=== PATIENT | male | born 1960 | race Caucasian/White ===

== ENCOUNTER → 2019-12-14 | Outpatient (CLI) | payer OTHER ==
[~2019-12-14] MED LIST: B COMPLEX & B121 TAB PO; COZAAR100 MG PO; GLUCOPHAGE500 MG/TAB PO; LIPITOR20 MG PO; LOPRESSOR 225 MG/TAB PO; LYRICA 25MG CAP25 MG PO; MAG-OX 400400 MG/TAB PO; PRENATAL TABLET PO; PROTONIX 40MG T40 MG PO; TOUJEO300 U/ML SQ; ULTRAM 50MG TAB50 MG PO
== END ==
LOC: COL.RAD 08:54
DX: Z01.812 Encounter for preprocedural laboratory examination (principal); K76.0 Fatty (change of) liver, not elsewhere classified; I70.0 Atherosclerosis of aorta; R11.2 Nausea with vomiting, unspecified; R19.7 Diarrhea, unspecified
CPT/HCPCS: Q9967

== ENCOUNTER 2019-12-17 06:42 | Day surgery (SDC) | payer OTHER ==
[~2019-12-17] VITALS: Ht 193 cm; Wt 156.1 kg
[2019-12-17] MEDS ORDERED: LYRICA 25MG CAP25 MG PO (07:19)
[2019-12-17] MEDS ORDERED: PROTONIX 40MG T40 MG PO (07:19)
[2019-12-17] MEDS ORDERED: LIPITOR20 MG PO (07:19)
[2019-12-17] MEDS ORDERED: MAG-OX 400400 MG/TAB PO (07:20)
[2019-12-17] MEDS ORDERED: LOPRESSOR 225 MG/TAB PO (07:20)
[2019-12-17] MEDS ORDERED: COZAAR100 MG PO (07:21)
[2019-12-17] MEDS ORDERED: TOUJEO300 U/ML SQ (07:21)
[2019-12-17] MEDS ORDERED: GLUCOPHAGE500 MG/TAB PO (07:21)
[2019-12-17 07:22] VITALS: BP 139/91; PULSE 73; TEMP 98
[2019-12-17] MEDS ORDERED: ULTRAM 50MG TAB50 MG PO (07:22)
[2019-12-17] MEDS ORDERED: B COMPLEX & B121 TAB PO (07:22)
[2019-12-17] MEDS ORDERED: PRENATAL TABLET PO (07:22)
[2019-12-17 09:25] VITALS: BP 123/74; PULSE 71; TEMP 97.7
--- NOTE | 2019-12-17 09:25 | NUR ---
PT TO BAY 1 VIA CART FROM ENDO LAB, WALKED TO CHAIR, IN ROOM, REQUESTS WATER TO DRINK, CALL LIGHT IN REACH
[2019-12-17 09:40] VITALS: BP 141/78; PULSE 69
--- NOTE | 2019-12-17 09:40 | NUR ---
DR CERVANTES INTO SEE PT AND ON FINDINGS OF POLYPS AND MASS IN SIGNMOID. PT SHAKEY, WARM AND BLANKETS USED, BETTER, PT QUIET STATES " I WAS JUST GIVEN A BLOW" NO OTHER REQUESTS AT THIS TIME
[2019-12-17 09:55] VITALS: BP 156/94; PULSE 73
--- NOTE | 2019-12-17 09:55 | NUR ---
PT TAKES JUICE AND MUFFIN, NO FURTHER SHAKING AT THIS TIME.
[2019-12-17 10:10] VITALS: BP 104/80; PULSE 83
--- NOTE | 2019-12-17 10:30 | NUR ---
PT TOOL MUFFIN AND JUICE, NO C/O. REVIEWED DISCHARGE INST. WITH PT AND , ON MODERATE SEDATION, NOT DRIVING OR DRINKING ALCOHOL TODAY. ALSO FOLLOWUP WITH PRIMARY CARE PHYSICIAN, DR CERVANTES WILL CONTACTING THEM WITH NEXT STEP APPTS AND RESULTS FROM BIOPSY OF MASS IN NEXT DAY OR TWO, VERBAL UNDERSTANDING. IV D'CD INTACT, PT UP IN ROOM DRESSED. UP TO B/R, DISCHARGED AT 1040 VIA W/C TO CAR WITH
== END 2019-12-17 10:40 | disposition home or self-care (01) ==
LOC: SDCO 06:42
DX: D12.5 Benign neoplasm of sigmoid colon (principal); D12.0 Benign neoplasm of cecum; K64.8 Other hemorrhoids; K22.70 Barrett's esophagus without dysplasia; K21.0 Gastro-esophageal reflux disease with esophagitis; K29.20 Alcoholic gastritis without bleeding; F41.9 Anxiety disorder, unspecified; E11.9 Type 2 diabetes mellitus without complications; E78.00 Pure hypercholesterolemia, unspecified; I10 Essential (primary) hypertension; G47.33 Obstructive sleep apnea (adult) (pediatric); M19.90 Unspecified osteoarthritis, unspecified site; Z87.891 Personal history of nicotine dependence; Z98.52 Vasectomy status
CPT/HCPCS: J2250; J2405; J2704; J3010; J7030

== ENCOUNTER 2019-12-21 16:57 | Inpatient (IN) | payer OTHER ==
[~2019-12-21] VITALS: Ht 193 cm; Wt 156.5 kg
[2019-12-26] VITALS (11 sets, daily range): BP systolic 89–127; BP diastolic 42–80; PULSE 52–91; TEMP 97.6–98.1
[2019-12-26 09:22] LABS: BASO # 0.1 (0.0-0.2); BASO % 1.3 % (0.0-2.0); EOS # 0.1 (0.0-0.7); EOS % 2.4 % (0-4.0); GRAN # 1.9 (1.4-6.5); GRAN % 50.6 % (42.2-75.2); HEMATOCRIT 37.5 % (42.0-52.0); LYMPH # 1.3 (1.2-3.4); LYMPH % 35.6 % (20.0-51.0); MEAN CELL VOLUME 99 fl (80.0-100.0); MEAN CORPUSCULAR HEMOGLOBIN 34 pg (27.0-31.0); MEAN CORPUSCULAR HGB CONC 35 g/dl (33.0-37.0); MEAN PLATELET VOLUME 10.1 fl (7.4-10.4); MONO # 0.4 (0.1-0.6); MONO % 9.8 % (1.7-9.3); PLATELET COUNT 117 K/mm3 (130-400); REDCELL DISTRIBUTION WIDTH-CV 12.5 % (11.5-14.5)
--- NOTE | 2019-12-26 09:28 | NUR ---
PATIENT ARRIVED TO AMB CARE UNIT AMBULATING WITH STEADY GAIT. ACOMPANYING PATIENT. PATIENT STATES HE IS VERY NERVOUS ABOUT SURGERY. PT REASSURED. LUNGS ARE CTA. HEART SOUNDS S1, S2 AND REGULAR. BOWEL SOUNDS HEARD IN ALL 4 QUADRANTS. PEDAL PULSES +2. CONSENT SIGNED. IV STARTED IN LEFT HAND WITH 20GUAGE, 1 ATTEMPT. PATIENT ON CART. AT BEDSIDE.
[2019-12-26 09:43] LABS: ALBUMIN 3.5 gm/dL (3.5-5.0); CALCIUM 8.5 mg/dL (8.4-10.2); CREATININE, serum 1.06 (0.66-1.25); POTASSIUM 4.5 mmol/L (3.4-5.0); TOTAL PROTEIN 6.6 gm/dL (6.4-8.2)
[2019-12-26 09:59] LABS: INR 0.9 (0.8-3.0)
--- NOTE | 2019-12-26 18:19 | NUR ---
Patient doing well since up from OR. Alert and oriented x 3. Family at bedside. Lap sites x 5 with edges well approximated. Patient called out stating pain 8/10 to RLQ, same as before he came in for procedure. Medications given per orders. IV fluids infusing per orders to Left hand. Bran to dependent drainage with clear yellow urine. Tolerating clear liquids advanced to regular diet, passing flatus. Post op VSS. Denies further needs at this time. Will report off to night baker.
--- NOTE | 2019-12-26 20:00 | NUR ---
Pt. sitting up in bed at this time. Pt. is A&OX3, assessment complete. INT to lt. hand patent. Pt. reports that the lino catheter is cause discomfort. Dr. King notified, ok to remove this evening. Lap sites to abd. CDI. Pt. reports pain at a 4 on pain scale. Pt. reports that he would like to wait til later to take evening meds. Informed pt. to call when ready to take said meds. Pt. deneis further needs, call light within reach.
[2019-12-27 03:31] VITALS: BP 114/65; PULSE 77; TEMP 97.6
[2019-12-27 07:18] VITALS: BP 128/59; PULSE 79; TEMP 98.1
[2019-12-27] MEDS ORDERED: ULTRAM 50MG TAB50 MG PO (08:42)
[2019-12-27] MEDS ORDERED: ROXICODONE 55 MG/TAB PO (08:42)
--- NOTE | 2019-12-27 10:15 | NUR ---
Discharg orders discussed, instructed to follow up as scheduled, explained office will be calling to schedule consult/Sx , scripts for pain meds provided, IV removed, discussed incision site(s) cares, leaving wit his , he is ambualtory and I escorted them out the door
== END 2019-12-27 10:43 | disposition home or self-care (01) | DRG 395 ==
LOC: SURG 12-26 08:10 → INPTSU 12-26 08:10 → SURG 12-26 10:00
PROVIDERS: Urology; ADMIT Surgery
PROC: 0DBP8ZX Excision of Rectum, Via Natural or Artificial Opening Endoscopic, Diagnostic (ICD-10-PCS; 2019-12-26)
PROC: 0TH983Z Insertion of Infusion Device into Ureter, Via Natural or Artificial Opening Endoscopic (ICD-10-PCS; principal; 2019-12-26 10:00)
PROC: 0DBN8ZX Excision of Sigmoid Colon, Via Natural or Artificial Opening Endoscopic, Diagnostic (ICD-10-PCS; 2019-12-26 10:00)
DX: D12.7 Benign neoplasm of rectosigmoid junction (principal); K21.0 Gastro-esophageal reflux disease with esophagitis; E66.9 Obesity, unspecified; G47.30 Sleep apnea, unspecified; I10 Essential (primary) hypertension; E78.00 Pure hypercholesterolemia, unspecified; F10.10 Alcohol abuse, uncomplicated; E11.40 Type 2 diabetes mellitus with diabetic neuropathy, unspecified; Z98.52 Vasectomy status; Z68.30 Body mass index [BMI] 30.0-30.9, adult
CPT/HCPCS: A4314; A9284; J0330; J0690; J1100; J1815; J2250; J2405; J2704; J2710; J3010; J7030

== ENCOUNTER 2020-06-20 10:00 | Outpatient (RCR) | payer OTHER ==
[2020-05-23 08:20] VITALS: BP 115/66; PULSE 77; TEMP 97.5
[2020-05-25 08:09] VITALS: BP 133/70; PULSE 67; TEMP 97.3
[2020-05-26 08:12] VITALS: BP 109/76; PULSE 76; TEMP 98.1
[2020-05-26 08:33] LABS: HEMATOCRIT 33.2 % (42.0-52.0); MEAN CELL VOLUME 96 fl (80.0-100.0); MEAN CORPUSCULAR HEMOGLOBIN 32 pg (27.0-31.0); MEAN CORPUSCULAR HGB CONC 33 g/dl (33.0-37.0); MEAN PLATELET VOLUME 9.9 fl (7.4-10.4); PLATELET COUNT 184 K/mm3 (130-400); RED BLOOD COUNT 3.45 M/mm3 (4.20-5.60); REDCELL DISTRIBUTION WIDTH-CV 12.3 % (11.5-14.5)
[2020-05-26 08:41] LABS: ALBUMIN 3.8 gm/dL (3.5-5.0); BILIRUBIN,TOTAL 0.5 mg/dL (0.0-1.0); C-REACTIVE PROTEIN 4.8 mg/dL (0.0-0.9); CALCIUM 9.1 mg/dL (8.4-10.2); CREATININE, serum 0.71 (0.66-1.25); POTASSIUM 4.5 mmol/L (3.4-5.0); TOTAL PROTEIN 7.1 gm/dL (6.4-8.2)
[2020-05-27 08:15] VITALS: BP 129/77; PULSE 73; TEMP 98.4
[2020-05-28 07:15] VITALS: BP 124/73; PULSE 71; TEMP 97.9
[2020-05-29 08:23] VITALS: BP 133/71; PULSE 89; TEMP 98
--- NOTE | 2020-05-29 08:30 | NUR ---
PICC intact right upper arm with sterile dressing change done with insertion site cleansed with chloraprep x 1, chlorhexidine impreganted disk applied, skin prep, stat lock, and tegaderm applied. no signs or symptoms of IV complications noted. no concerns voiced. re-wrapped with christiano to protect catheter. to continue with cares in EU as scheduled. voiced understanding of instructions.
[2020-05-30 08:02] VITALS: BP 121/66; PULSE 76; TEMP 97.6
[2020-06-02 08:14] LABS: MEAN CELL VOLUME 95 fl (80.0-100.0); MEAN CORPUSCULAR HEMOGLOBIN 32 pg (27.0-31.0); MEAN CORPUSCULAR HGB CONC 34 g/dl (33.0-37.0); MEAN PLATELET VOLUME 9.6 fl (7.4-10.4); PLATELET COUNT 172 K/mm3 (130-400); RED BLOOD COUNT 3.44 M/mm3 (4.20-5.60); REDCELL DISTRIBUTION WIDTH-CV 12.4 % (11.5-14.5)
[2020-06-02 08:15] LABS: HEMATOCRIT 32.8 % (42.0-52.0)
[2020-06-02 08:17] VITALS: BP 138/78; PULSE 71; TEMP 98.6
[2020-06-02 08:25] LABS: ALBUMIN 3.7 gm/dL (3.5-5.0); BILIRUBIN,TOTAL 0.5 mg/dL (0.0-1.0); C-REACTIVE PROTEIN 2.2 mg/dL (0.0-0.9); CALCIUM 8.8 mg/dL (8.4-10.2); CREATININE, serum 0.62 (0.66-1.25); POTASSIUM 4.3 mmol/L (3.4-5.0); TOTAL PROTEIN 6.9 gm/dL (6.4-8.2)
[2020-06-03 07:52] VITALS: BP 130/84; PULSE 85; TEMP 98.3
[2020-06-04 08:18] VITALS: BP 130/80; PULSE 76; TEMP 97.8
[2020-06-05 08:02] VITALS: BP 119/78; PULSE 82; TEMP 98.8
--- NOTE | 2020-06-05 08:30 | NUR ---
PICC intact right upper arm. With sterile technique right upper arm PICC dressing change done with insertion site cleansed with ChloraPrep 1, chlorhexidine impregnated disc applied, skin prep, StatLock, and Tegaderm applied. No signs or symptoms of IV complications noted. No concerns voiced. Arm wrapped with Darron to protect catheter. To continue with cares in the express unit. Patient voiced understanding of instructions.
[2020-06-06 08:10] VITALS: BP 125/84; PULSE 83; TEMP 98.4
[2020-06-07 08:00] VITALS: BP 115/70; PULSE 88; TEMP 98.4
[2020-06-08 08:37] VITALS: BP 144/90; PULSE 77; TEMP 98.9
[2020-06-09 07:53] VITALS: BP 147/76; PULSE 83; TEMP 98.4
[2020-06-09 08:46] LABS: HEMATOCRIT 32.2 % (42.0-52.0); HEMOGLOBIN 10.9 g/dl (13.5-18.0); MEAN CELL VOLUME 96 fl (80.0-100.0); MEAN CORPUSCULAR HEMOGLOBIN 32 pg (27.0-31.0); MEAN CORPUSCULAR HGB CONC 34 g/dl (33.0-37.0); MEAN PLATELET VOLUME 10.2 fl (7.4-10.4); PLATELET COUNT 143 K/mm3 (130-400); RED BLOOD COUNT 3.37 M/mm3 (4.20-5.60); REDCELL DISTRIBUTION WIDTH-CV 12.7 % (11.5-14.5)
[2020-06-09 09:01] LABS: ALBUMIN 3.6 gm/dL (3.5-5.0); BILIRUBIN,TOTAL 0.5 mg/dL (0.0-1.0); C-REACTIVE PROTEIN 1.3 mg/dL (0.0-0.9); CALCIUM 8.8 mg/dL (8.4-10.2); CREATININE, serum 0.67 (0.66-1.25); POTASSIUM 4.2 mmol/L (3.4-5.0); TOTAL PROTEIN 6.7 gm/dL (6.4-8.2)
[2020-06-10 08:07] VITALS: BP 133/81; PULSE 83; TEMP 98.3
[2020-06-11 08:08] VITALS: BP 143/90; PULSE 80; TEMP 98
[2020-06-12 08:00] VITALS: BP 174/90; PULSE 84; TEMP 98.4
--- NOTE | 2020-06-12 08:00 | NUR ---
PICC intact right upper arm with sterile dressing change done with insertion site cleansed with chloraprep x 1, chlorhexhexidine impregnated disk applied, skin prep, stat lock, and tegaderm applied. no signs or symptoms of IV complications noted. no concerns voiced. re-wrapped with christiano to protect catheter. to continue with cares in EU. voiced understanding of instructions.
[2020-06-13 08:18] VITALS: BP 129/76; PULSE 81; TEMP 98
[2020-06-14 07:58] VITALS: BP 145/83; PULSE 88; TEMP 98.6
[2020-06-15 08:00] VITALS: BP 126/72; PULSE 72; TEMP 98.3
[2020-06-16 08:09] VITALS: BP 119/76; PULSE 80; TEMP 82; TEMP 98.1
[2020-06-16 08:20] LABS: HEMOGLOBIN 11.3 g/dl (13.5-18.0); MEAN CELL VOLUME 98 fl (80.0-100.0); MEAN CORPUSCULAR HEMOGLOBIN 32 pg (27.0-31.0); MEAN CORPUSCULAR HGB CONC 33 g/dl (33.0-37.0); MEAN PLATELET VOLUME 10.3 fl (7.4-10.4); PLATELET COUNT 138 K/mm3 (130-400); RED BLOOD COUNT 3.51 M/mm3 (4.20-5.60); REDCELL DISTRIBUTION WIDTH-CV 13.5 % (11.5-14.5)
[2020-06-16 08:22] LABS: HEMATOCRIT 34.3 % (42.0-52.0)
[2020-06-16 08:31] LABS: ALBUMIN 3.8 gm/dL (3.5-5.0); BILIRUBIN,TOTAL 0.6 mg/dL (0.0-1.0); C-REACTIVE PROTEIN 1.2 mg/dL (0.0-0.9); CALCIUM 8.9 mg/dL (8.4-10.2); CREATININE, serum 0.7 (0.66-1.25); POTASSIUM 4.5 mmol/L (3.4-5.0); TOTAL PROTEIN 6.9 gm/dL (6.4-8.2)
[2020-06-17 08:01] VITALS: BP 151/89; PULSE 79; TEMP 98
[2020-06-18 08:13] VITALS: BP 143/82; PULSE 81; TEMP 98
[2020-06-18 09:28] LABS: ALBUMIN 3.6 gm/dL (3.5-5.0); BILIRUBIN,TOTAL 0.5 mg/dL (0.0-1.0); CALCIUM 8.7 mg/dL (8.4-10.2); CREATININE, serum 0.67 (0.66-1.25); POTASSIUM 4.4 mmol/L (3.4-5.0); TOTAL PROTEIN 6.5 gm/dL (6.4-8.2)
[2020-06-18 17:42] LABS: URINE MICROALBUMIN 0.9 mg/dL (0.0-1.7)
[2020-06-19 08:01] VITALS: BP 144/77; PULSE 80; TEMP 97.8
--- NOTE | 2020-06-19 08:30 | NUR ---
PICC intact right upper arm. With sterile technique right upper arm PICC dressing change done with insertion site cleansed with ChloraPrep 1, chlorhexidine impregnated disc applied, skin prep, StatLock, and Tegaderm applied. No signs or symptoms of IV complications noted. No concerns voiced. Arm wrapped with Darron to protect catheter. Patient has a doctor's appointment today. Plans to return next week for PICC cares. Voiced understanding of instructions.
[~2020-06-20] VITALS: Ht 193 cm; Wt 163.3 kg
[~2020-06-20 10:00] MED LIST changes: +BENTYL 10MG10 MG/CAP PO; +GLUCOPHAGE XR500 M1 PO; +IMODIUM 2MG CAPS2 MG PO; +LYRICA 50MG CAP50 MG PO; +NATURAL MAGNES200 MG PO; +NATURE'S BLEND100 M2 PO; +PROBIOTIC FORMU1 CAP PO; +ROXICODONE 55 MG/TAB PO; +TRULICITY0.75 MG/0. SQ
[2020-06-20 10:12] VITALS: BP 177/90; PULSE 79; TEMP 97.8
== END 2020-06-20 10:13 | disposition home or self-care (01) ==
LOC: EUO 10:00
PROVIDERS: Internal Medicine; Internal Medicine Infectious Disease
DX: R79.89 Other specified abnormal findings of blood chemistry (principal)
CPT/HCPCS: J0878; J1335

== ENCOUNTER 2020-11-14 13:12 | Emergency (ER) | payer OTHER ==
[~2020-11-14] VITALS: Ht 193 cm; Wt 150.0 kg
[2020-11-14] MEDS ORDERED: PROVENTIL0.09 MG/A1 IH (14:55)
[2020-11-14] MEDS ORDERED: AMOXICILLIN 50500 MG PO (14:55)
[2020-11-14 15:05] VITALS: BP 164/72; PULSE 70; TEMP 98.2
== END 2020-11-14 15:07 | disposition home or self-care (01) ==
LOC: COL.ER 13:12
DX: J20.9 Acute bronchitis, unspecified (principal); E11.9 Type 2 diabetes mellitus without complications; Z79.4 Long term (current) use of insulin

== ENCOUNTER 2021-01-02 08:06 | Day surgery (SDC) | payer OTHER ==
[~2021-01-02] VITALS: Ht 193 cm; Wt 167.3 kg
[~2021-01-02 08:06] MED LIST changes: +AMOXICILLIN 50500 MG PO; +PROVENTIL0.09 MG/A1 IH
[2021-01-02] MEDS ORDERED: LYRICA 75MG CAP75 MG PO (09:00)
[2021-01-02 09:01] VITALS: BP 135/82; PULSE 75; TEMP 98.2
[2021-01-02] MEDS ORDERED: LIPITOR20 MG PO (09:01)
[2021-01-02] MEDS ORDERED: PROTONIX 40MG T40 MG PO (09:01)
[2021-01-02] MEDS ORDERED: COZAAR100 MG PO (09:02)
[2021-01-02] MEDS ORDERED: LOPRESSOR100 MG PO (09:02)
[2021-01-02] MEDS ORDERED: GLUCOPHAGE1000 MG PO (09:03)
[2021-01-02] MEDS ORDERED: TOUJEO300 U/ML SQ (09:04)
[2021-01-02] MEDS ORDERED: ASPIRIN 81M81 MG/TA2 PO (09:05)
[2021-01-02] MEDS ORDERED: TRULICITY1.5 MG/0.5 SQ (09:05)
[2021-01-02] MEDS ORDERED: PRENATAL TABLET PO (09:06)
[2021-01-02] MEDS ORDERED: MAG-OX 400400 MG/TAB PO (09:06)
[2021-01-02] MEDS ORDERED: VITAMIN B COMPL1 SGL PO (09:07)
[2021-01-02] MEDS ORDERED: PROBIOTIC FORMU1 CAP PO (09:08)
[2021-01-02] MEDS ORDERED: IMODIUM A-D2 MG PO (09:08)
[2021-01-02] MEDS ORDERED: BENTYL 10MG10 MG/CAP PO (09:09)
[2021-01-02] MEDS ORDERED: LASIX 20MG TABL20 MG PO (09:10)
[2021-01-02] MEDS ORDERED: K-DUR20 MEQ PO (09:12)
[2021-01-02 10:25] VITALS: BP 122/68; PULSE 75; TEMP 98
--- NOTE | 2021-01-02 10:25 | NUR ---
Patient arrives back to [facility] alert, denies pain or nausea. Patient ambulated from cart to chair with standby assist and without any complications. Patient monitor applied, vitals stable. Patient's spouse at bedside.
--- NOTE | 2021-01-02 10:30 | NUR ---
Patient given juice and muffin.
[2021-01-02 10:45] VITALS: BP 139/93; PULSE 75
--- NOTE | 2021-01-02 10:45 | NUR ---
Patient tolerated food and drink without any nausea. Vitals stable.
[2021-01-02 11:00] VITALS: BP 139/85; PULSE 73
--- NOTE | 2021-01-02 11:10 | NUR ---
Dismissal instructions gone over with patient and patient's spouse. Both verbalize understanding and all questions answered.
--- NOTE | 2021-01-02 11:15 | NUR ---
Patient dismissed to private vehicle at patient enterance via wheelchair without any complications. Patient and spouse leave thanking staff for services.
== END 2021-01-02 11:15 | disposition home or self-care (01) ==
LOC: SDCO 08:06
DX: Z12.11 Encounter for screening for malignant neoplasm of colon (principal); K22.70 Barrett's esophagus without dysplasia; K21.00 Gastro-esophageal reflux disease with esophagitis, without bleeding; D12.4 Benign neoplasm of descending colon; K29.70 Gastritis, unspecified, without bleeding; Q40.2 Other specified congenital malformations of stomach; K63.89 Other specified diseases of intestine; K64.1 Second degree hemorrhoids; U07.1 COVID-19; I10 Essential (primary) hypertension; E78.5 Hyperlipidemia, unspecified; E66.01 Morbid (severe) obesity due to excess calories; G47.33 Obstructive sleep apnea (adult) (pediatric); G62.9 Polyneuropathy, unspecified; M19.90 Unspecified osteoarthritis, unspecified site; M86.9 Osteomyelitis, unspecified; E11.42 Type 2 diabetes mellitus with diabetic polyneuropathy; Z79.4 Long term (current) use of insulin; Z98.52 Vasectomy status; Z88.8 Allergy status to other drugs, medicaments and biological substances; Z85.048 Personal history of other malignant neoplasm of rectum, rectosigmoid junction, and anus; Z90.49 Acquired absence of other specified parts of digestive tract; Z99.89 Dependence on other enabling machines and devices; Z79.899 Other long term (current) drug therapy
CPT/HCPCS: J2704; J7030

== ENCOUNTER 2021-12-20 11:26 | Emergency (ER) | payer OTHER ==
[~2021-12-20] VITALS: Ht 198.1 cm; Wt 181.8 kg
[~2021-12-20 11:26] MED LIST changes: +ASPIRIN 81M81 MG/TA2 PO; +GLUCOPHAGE1000 MG PO; +IMODIUM A-D2 MG PO; +K-DUR20 MEQ PO; +LASIX 20MG TABL20 MG PO; +LOPRESSOR100 MG PO; +LYRICA 75MG CAP75 MG PO; +TRULICITY1.5 MG/0.5 SQ; +VITAMIN B COMPL1 SGL PO
[2021-12-20 11:31] VITALS: TEMP 98.5
[2021-12-20] MEDS ORDERED: ROXICODONE 55 MG/TAB PO (12:42)
[2021-12-20] MEDS ORDERED: CEPHALEXIN500 M1 PO (12:42)
[2021-12-20 13:08] VITALS: BP 147/83; PULSE 78
== END 2021-12-20 13:08 | disposition home or self-care (01) ==
LOC: COL.ER 11:26
DX: S93.115A Dislocation of interphalangeal joint of left lesser toe(s), initial encounter (principal); Z89.412 Acquired absence of left great toe; W22.8XXA Striking against or struck by other objects, initial encounter

== ENCOUNTER 2022-02-08 15:25 | Inpatient (IN) | payer OTHER ==
[~2022-02-08] VITALS: Ht 195.6 cm; Wt 165.1 kg
[~2022-02-08 15:25] MED LIST changes: +CEPHALEXIN500 M1 PO
[2022-02-08 16:24] LABS: BASO % 0.5 % (0.0-2.0); EOS # 0.3 K/mm3 (0.0-0.7); EOS % 4.2 % (0.0-4.0); GRAN # 4.6 K/mm3 (1.4-6.5); GRAN % 68.6 % (42.2-75.2); LYMPH # 1.1 K/mm3 (1.2-3.4); LYMPH % 16.9 % (20.0-51.0); MEAN CELL VOLUME 100 fl (80.0-100.0); MEAN CORPUSCULAR HEMOGLOBIN 33 pg (27-31); MEAN CORPUSCULAR HGB CONC 33 g/dl (33.0-37.0); MEAN PLATELET VOLUME 10.4 fl (7.4-10.4); MONO # 0.6 K/mm3 (0.1-0.6); MONO % 9.2 % (1.7-9.3); PLATELET COUNT 130 K/mm3 (130-400); RED BLOOD COUNT 3.29 M/mm3 (4.20-5.60); REDCELL DISTRIBUTION WIDTH-CV 12.3 % (11.5-14.5)
[2022-02-08 16:55] LABS: ALBUMIN 3.1 gm/dL (3.4-4.8); BILIRUBIN,TOTAL 0.5 mg/dL (0.2-1.2); CREATININE, serum 9.46 mg/dL (0.72-1.25); POTASSIUM 5.5 mmol/L (3.5-4.5); TOTAL PROTEIN 6.2 gm/dL (6.2-8.1)
[2022-02-08 17:58] LABS: COLLECTION METHOD CATHETER
[2022-02-08 18:06] LABS: MUCOUS Present (NOT PRESENT); PH 5 (5-8); SQUAMOUS EPITHELIAL 0-2 /hpf (0-10); URINE APPEARANCE Hazy (CLEAR/HAZY); URINE BACTERIA Rare /hpf (NONE SEEN); URINE BILIRUBIN Negative (NEGATIVE); URINE BLOOD 2+ (NEGATIVE); URINE COLOR Yellow (YELLOW); URINE GLUCOSE Negative (NEGATIVE); URINE KETONE Negative (NEGATIVE); URINE LEUKOCYTE ESTERASE Negative (NEGATIVE); URINE NITRATE Negative (NEGATIVE); URINE PROTEIN(semi-quant) Negative (NEGATIVE); URINE RBC 20-50 /hpf (0-2); URINE UROBILINOGEN Negative (NEGATIVE)
[2022-02-08] MEDS ORDERED: HUMALOG100 U/ML SQ (20:54)
[2022-02-08] MEDS ORDERED: ZYLOPRIM 100MG100 MG PO (21:01)
[2022-02-08] MEDS ORDERED: FOLIC ACID 11 MG/TA1 PO (21:03)
[2022-02-08] MEDS ORDERED: NYAMYC100000 U/G TP (21:58)
[2022-02-08 22:17] VITALS: BP 120/69; PULSE 68; TEMP 98
--- NOTE | 2022-02-08 22:21 | NUR ---
Pt was transferred up from ED around 2029. Alert and oriented. Calm and very pleasant. Carlyn at bedside. Shift assessment performed. Med rx completed with at bedside. COVID and infectious disease screen completed. Intake assessment and admission intake completed. Administered medications to pt per orders. Started NS at 100 ml/hr per orders into LFA IV. Blood sugar was 99 when assessed on arrival to the floor. Pt stated he was hungry, so we provided him with a sanwich tray and water. Administered ordered insulin after pt finished sandwich tray. Vital signs stable. BP 120/69 and HR 68. Breath sounds are clear. HR WNL. Abdomen is distended, but soft. Pt denies abdominal pain to palpation. Denies chest pain. Minor non-pitting edema noted in the BLE. Pt is missing the big toe on the left foot. 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 Provided pt with urinal and encouraged pt to use when needed. Will continue to assess pt's urine output. Will insert lino catheter if needed per orders. 1+ radial and pedal pulses bilaterallyy. Noted an midline incision scar on abdomen. Minor bruising noted on arms. Pt wears compression stockings on legs, and states he wears them at home. Pt states is currently bed bound, states he is very weak and is unable to stand up. Says he was using a walker at home, but has not been recently because he is unable to get up. states pt has been constipated recently, last larger BM was Tuesday, but dod have a small "golf ball" sized BM this morning. Pt reports no questions at this time, will continue to monitor.
[2022-02-08 23:44] VITALS: BP 119/64; PULSE 71; TEMP 98.2
--- NOTE | 2022-02-09 03:06 | NUR ---
Inserted lino catheter on pt with a second RN at bedside . Pt did not tolerate very well. Got urine return, but not much urine has come out of catheter so far. Will continue to assess urine output.
[2022-02-09 04:35] VITALS: BP 134/70; PULSE 67; TEMP 98.2
--- NOTE | 2022-02-09 05:29 | NUR ---
Noted about 1 hr ago that pt had nourine output into lino catheter. Pt reported to us that he would not be allowing us to place another if need be. Notified the provider, who said ordered to remove the lino. Myself and a second RN went into assess the catheter again before removal. We adjusted the placement and a large amount of thick blood began to run into the tubing, but still no urine. We attempted a small amount of irrigation and no urine appeared. We removed the catheter and noted a large clot on the end of the catheter when it was removed. The pt's penis began to bleed at the tip. We applied continuous pressure and notified the provider. We held pressure for approximately 10 mins until the bleeding stopped. A large clot came out of the pt's penis when applying pressure. The provider ordered for a abdominal CT to be ordered amd to hold the heparin injection. . Pt was able to sit up on the side of the bed and void 200 into the urinal after the catheter was removed. He reports a burning pain when urinating, but stated it was more comfortable now with the catheter out. Myself and a second RN took the patient down for the CT and returned the pt to his room. No new bleeding has been noted. Will continue to reassess for any new genital bleeding. Pt remains alert and oriented this evening. Calm. Remains in NSR. Satting at 97% on room air. Has had a total of 400 ml of urine output tonight via voiding into urinal. Urine is natanael with red. Pt continues to have fluids run in through his IV. No new edema noted. Will continue to monitor pt.
[2022-02-09 06:22] LABS: BASO % 0.5 % (0.0-2.0); EOS # 0.3 K/mm3 (0.0-0.7); EOS % 5.6 % (0.0-4.0); GRAN # 3.8 K/mm3 (1.4-6.5); GRAN % 69.3 % (42.2-75.2); HEMOGLOBIN 10.5 g/dl (13.5-18.0); LYMPH # 0.8 K/mm3 (1.2-3.4); LYMPH % 15.1 % (20.0-51.0); MEAN CELL VOLUME 101 fl (80.0-100.0); MEAN CORPUSCULAR HEMOGLOBIN 34 pg (27-31); MEAN CORPUSCULAR HGB CONC 33 g/dl (33.0-37.0); MEAN PLATELET VOLUME 10.9 fl (7.4-10.4); MONO # 0.5 K/mm3 (0.1-0.6); MONO % 8.8 % (1.7-9.3); PLATELET COUNT 129 K/mm3 (130-400); RED BLOOD COUNT 3.11 M/mm3 (4.20-5.60); REDCELL DISTRIBUTION WIDTH-CV 12.5 % (11.5-14.5)
[2022-02-09 06:28] LABS: HEMATOCRIT 31.4 % (42.0-52.0)
[2022-02-09 06:49] LABS: CALCIUM 8.6 mg/dL (8.4-10.2); CREATININE, serum 8.66 mg/dL (0.72-1.25); MAGNESIUM 2.3 mg/dL (1.6-2.6); POTASSIUM 5.6 mmol/L (3.5-4.5)
--- NOTE | 2022-02-09 07:04 | NUR ---
Pt was able to have another 175 ml void this morning. No new bleeding noted in the genital area. Continuing to monitor.
[2022-02-09 08:27] VITALS: BP 134/75; PULSE 70; TEMP 98
--- NOTE | 2022-02-09 08:46 | NUR ---
Scheduled medications given. Shift assessment performed. Patient C/O generalized aches and pains, rated a 4/10, but denies the need for interventions at this time. Patient weak overall, care specialist strength weak, but equal. VSS. Patient A&O. Colace and Miralax held for loose stools. Patient denies any further pain, discomfort, SOA, or further needs at thist time. Call light in reach. Fluids running as ordered. Fall percautions in lace. Patient having red tinged urine, free from blood clots.
--- NOTE | 2022-02-09 09:40 | NUR ---
Initial visit; Patient thanked Wind Turbine Electrical Engineer for looking in on him. He states he is doing well this morning and thanked Wind Turbine Electrical Engineer for offering God's blessings.
--- NOTE | 2022-02-09 11:32 | NUR ---
magazine worker and student work student met with patient to discuss discharge plan. Patient's Carlyn ([phone]) present at bedside. 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 At this time he reports he is able to get his shirt on and thats it. He states he has a shower chair at home that he was using but since November he has been getting bed baths from his . Patient states that he has surgery a year ago for cancer and that since then his weakness has progressed. He reports that the past three weeks " it has been the worst that it's ever been and i can't even stand". Patient has to utilize a wheelchair while ambulting otherwise he falls. Patient has no home oxygen needs. PCP is Dr. Eli Valadez and he utilizes [facility] in [place] for perscriptions with no cost difficulty. Patient does not currently have a DPOA-HC but both he and Carlyn expressed interest in establishing one. Education provided along with form. I informed the patient that we can complete this prior to discharge. Spoke with the patient about PT evaluation and the recommendation of going to [facility]. Patient reports that " i can't go home how i am now". He has had home health services since November and they were good at first but now it's not enough.Education about [facility] provided and the patient is VERY interested in a more intense therapy. [facility] director contacted and referral placed. Discharge plan: [facility] referral place
[2022-02-09 11:54] VITALS: BP 129/73; PULSE 69; TEMP 98.3
[2022-02-09 12:56] LABS: PHOSPHOROUS 5.1 mg/dL (2.3-4.7)
[2022-02-09 16:27] VITALS: BP 123/69; PULSE 70; TEMP 98
--- NOTE | 2022-02-09 18:04 | NUR ---
KEVIN Elmore contacted regarding bladder scan. Patient retaining 432 ml after a void of 400 ml. This RN instructed to rescan patient's bladder again at 1999, if more than 400 will need to straight cath patient.
--- NOTE | 2022-02-09 18:48 | NUR ---
Patient has had an ok day. VSS. Patient A&O. Continues to be very weak and unable to ambulate. Patient able to sit on edge of bed and eat with assistance. Tylenol given once this shift for hip pain. Verbal order for pain mecation recieved from Dr. Stuart. Order repeated back to and entered into the computer. Patient currenlty eating supper with the assistance of his . Denies any further pain, discomfort, SOA, or further needs at this time. Call light in reach. Fall percautions in place.
--- NOTE | 2022-02-09 20:17 | NUR ---
Pt voided 500 ml into urinal at 1999 . Urine was yellow with a littl bit of a red tint. Immediately bladder scanned pt and he retained 288 ml. Notified provider. No new changes at this time. Will continue to monitor urine output.
[2022-02-09 20:18] VITALS: BP 114/58; PULSE 68; TEMP 98
--- NOTE | 2022-02-09 22:22 | NUR ---
Pt voided 475 ml. Bladder scanned immediately after and pt had 210 residual left in bladder. Will continue to monitor urine output.
--- NOTE | 2022-02-09 23:10 | NUR ---
Pt is drowsy, but oriented this evening. Has been sleeping on and off quietly since the beginning of the shift. Has been scoring at a 2-3 so far this evening. Vital signs are stable. HR has remained below 90. BP has improved this evening. Pt is currently resting quietly. Pain medication administered x1 for abdominal pain, pt reports improvement. Pt did not eat much of his dinner. Bed alarm remains on and bed is low and locked. Continuing to assess vital signs every 2 hours and assess CIWA every 2 hours. Pt reports no questions at this time, will continue to monitor.
--- NOTE | 2022-02-09 23:15 | NUR ---
Pt is alert and oriented this evening. Family was at bedside, but has since left. Pt has voided x3 this shift. Residual assessed all times and pt had less than 400 ml in bladder. Notified provider of results. States we will continue to monitor, but no further interventions at this time. Shift assessment performed. Medications administered per orders and education provided. Pt tolerated medications well. Blood sugar was 161. Vital signs are stable. Pt was able to sit up on the side of the bed to eat dinner this evening. Pt began complaining of shivering at 1130, even with multiple blankets on. Assessed pt's temperature and he was afebrile. Still alert and oriented. Administered tylenol prn, will reassess in 1 hr to see if pt has improved. No other concerns at this time, will continue to monitor pt.
[2022-02-09 23:50] VITALS: BP 130/81; PULSE 87; TEMP 100.3
--- NOTE | 2022-02-09 23:58 | NUR ---
Pt was shivering uncontrollably. Vital signs assessed. Temp is 100.3, HR was 87, oxygen 99% on room air. Prn tylenol was administered. Notified provider. No new orders changed. Will continue to monitor.
[2022-02-10] VITALS (8 sets, daily range): BP systolic 105–135; BP diastolic 58–90; PULSE 75–118; TEMP 98.7–102.5
[2022-02-10 00:34] LABS: BASO % 0.3 % (0.0-2.0); EOS # 0.2 K/mm3 (0.0-0.7); EOS % 2.8 % (0.0-4.0); GRAN # 6.9 K/mm3 (1.4-6.5); GRAN % 88.8 % (42.2-75.2); LYMPH # 0.5 K/mm3 (1.2-3.4); LYMPH % 5.8 % (20.0-51.0); MEAN CELL VOLUME 100 fl (80.0-100.0); MEAN CORPUSCULAR HEMOGLOBIN 33 pg (27-31); MEAN CORPUSCULAR HGB CONC 33 g/dl (33.0-37.0); MEAN PLATELET VOLUME 10.2 fl (7.4-10.4); MONO # 0.1 K/mm3 (0.1-0.6); MONO % 1.5 % (1.7-9.3); PLATELET COUNT 119 K/mm3 (130-400); RED BLOOD COUNT 3.31 M/mm3 (4.20-5.60); REDCELL DISTRIBUTION WIDTH-CV 12.5 % (11.5-14.5)
[2022-02-10 00:38] LABS: ALBUMIN 3.2 gm/dL (3.4-4.8); BILIRUBIN,TOTAL 0.4 mg/dL (0.2-1.2); CALCIUM 9.1 mg/dL (8.4-10.2); TOTAL PROTEIN 6.3 gm/dL (6.2-8.1)
[2022-02-10 00:40] LABS: POTASSIUM 4.9 mmol/L (3.5-4.5)
[2022-02-10 00:54] LABS: FRACTIONAL EXCRETION OF NA+ 5.96 %
--- NOTE | 2022-02-10 01:00 | NUR ---
Re-assessed pt. Shivering has improved but is still noted. Pt has now become confused. Tells me he is at home and that his dad is at bedside. Pt also became incontinent of urine. Changed pt's linens and notified provider. New orders have been placed by provider. Will start pt on IV rocephin after blood cultures. Provider also has ordered for pt to be placed on 2L o2. New labs are being drawn and a CXR is being performed. Will continue to assess pt's and follow new orders.
[2022-02-10 01:19] LABS: ARTERIAL BLD GAS O2 SATURATION 90.8 % (92-100); ARTERIAL BLD GAS TCO2 CT 20.9; ARTERIAL BLOOD GAS BASE EXCESS -3.2 (-2-2); ARTERIAL BLOOD GAS PCO2 30.1 mmHg (35-45); ARTERIAL BLOOD GAS PO2 59.5 mmHg (80-100); ARTERIAL BLOOD GAS pH 7.44 (7.35-7.45)
[2022-02-10] MEDS ORDERED: ZYRTEC 10MG10 MG PO (01:39)
--- NOTE | 2022-02-10 06:35 | NUR ---
Pt was still voiding incontinent. Provider ordered another UA sample, but was having difficulty obtaining d/t incontinence. Provider ordered an in and out cath since pt was unable to void into the urinal. Straight cath'd the pt successfully on 1 attempt. Pt tollerated well. Collected the specimen in the chart and send to the lab. Will continue to monitor.
[2022-02-10 06:44] LABS: MEAN CELL VOLUME 100 fl (80.0-100.0); MEAN CORPUSCULAR HEMOGLOBIN 34 pg (27-31); MEAN CORPUSCULAR HGB CONC 34 g/dl (33.0-37.0); MEAN PLATELET VOLUME 10.6 fl (7.4-10.4); PLATELET COUNT 122 K/mm3 (130-400); RED BLOOD COUNT 2.96 M/mm3 (4.20-5.60); REDCELL DISTRIBUTION WIDTH-CV 12.7 % (11.5-14.5)
[2022-02-10 06:47] LABS: COLLECTION METHOD CATHETER
[2022-02-10 06:48] LABS: HEMATOCRIT 29.5 % (42.0-52.0)
[2022-02-10 06:52] LABS: ALBUMIN 2.8 gm/dL (3.4-4.8); CALCIUM 8.7 mg/dL (8.4-10.2); CREATININE, serum 6.32 mg/dL (0.72-1.25); PHOSPHOROUS 3.2 mg/dL (2.3-4.7); POTASSIUM 4.7 mmol/L (3.5-4.5)
[2022-02-10 06:57] LABS: PH 5 (5-8); SQUAMOUS EPITHELIAL None Seen /hpf (0-10); URINE APPEARANCE Hazy (CLEAR/HAZY); URINE BACTERIA None Seen /hpf (NONE SEEN); URINE BILIRUBIN Negative (NEGATIVE); URINE BLOOD 3+ (NEGATIVE); URINE COLOR Yellow (YELLOW); URINE GLUCOSE Negative (NEGATIVE); URINE KETONE Negative (NEGATIVE); URINE LEUKOCYTE ESTERASE Negative (NEGATIVE); URINE NITRATE Negative (NEGATIVE); URINE PROTEIN(semi-quant) 1+ (NEGATIVE); URINE RBC >50 /hpf (0-2); URINE UROBILINOGEN Negative (NEGATIVE)
[2022-02-10 07:37] LABS: BAND 4 % (0-10); LYMPHOCYTE 17 % (20.0-51.0); NEUTROPHILS 75 % (42.0-75.2)
[2022-02-10 11:00] LABS: CALCIUM 8.5 mg/dL (8.4-10.2); CREATININE, serum 5.79 mg/dL (0.72-1.25); POTASSIUM 5.3 mmol/L (3.5-4.5)
--- NOTE | 2022-02-10 11:52 | NUR ---
Shift assessment performed. Scheduled medications given. Patient alert but disoriented. C/O 10/10 generalized pain described as electricity running through his body. Involuntary twitching noted in upper and lower extremities. Patient extremily weak. Provider notified in change of mental status and pain. One time dose of morphine ordered and administered. CT of head ordered and completed. Results pending. MRI to be completed as well. VSS. at the bedside. Call light in reach. Fall percautions in place.
--- NOTE | 2022-02-10 18:00 | NUR ---
Patient had a rough day. Patient has been alert, but unoriented. Unvoluntary twitching continues. PRN medication given for pain control. Patient's temp theodora to 102.5 this afternoon. Tylenol given as ordered. Ice packs place under patient's arms and in the groin. Upon recheck patient's temperature was at 100.5. Blood cultures came back postive. KEVIN Alejo notified. Patient is currenlty resting in bed. Respirations are even and unlabored. VSS. at the bedside.
[2022-02-11] VITALS (9 sets, daily range): BP systolic 121–152; BP diastolic 67–87; PULSE 66–76; TEMP 97.6–99.2
--- NOTE | 2022-02-11 02:40 | NUR ---
AT 2240 LAST NIGHT THIS NURSE WAS UNABLE TO AROUSE PATIENT. DR. MORENO NOTIFIED. DR. MORENO ABLE TO AROUSE PATIENT WITH A DEEP STERNAL RUB. PATIENT ALERT AND ORIENTED TO SELF AND DATE BUT CONFUSED ABOUT WHAT IS GOING ON AND WHY HE IS IN THE HOSPITAL AND WANTS TO GO HOME. EDUCATED PATIENT HE IS ON IV ANTIBIOTICS AND OXYGEN TO KEEP HIM STABLE. PATIENT VERBALIZED UNDERSTANDING AFTER IN DEPTH EXPLANATION.
--- NOTE | 2022-02-11 05:08 | NUR ---
PATIENT HAD TWO EPISODES OF VOMITING LAST NIGHT. THE EMESIS COLOR WAS LIGHT GREEN AND IT WAS FLUID. PATIENT HAS BEEN ALERT X'S 2-[address] MORENO WAS ABLE TO AROUSE HIM. NO OTHER ISSUES NOTED OR REPORTED BY PATIENT.
--- NOTE | 2022-02-11 07:55 | NUR ---
PATIENT UNCOMFORTABLE, CONFUSED TO SITUATION, SHORT TERM MEMORY LOSS. REPOSITIONED IN BED AND TURNED TO RIGHT SIDE.
[2022-02-11 08:13] LABS: BASO % 0.6 % (0.0-2.0); EOS % 0.3 % (0.0-4.0); GRAN # 2.5 K/mm3 (1.4-6.5); GRAN % 79.1 % (42.2-75.2); LYMPH # 0.3 K/mm3 (1.2-3.4); LYMPH % 10.2 % (20.0-51.0); MEAN CELL VOLUME 99 fl (80.0-100.0); MEAN CORPUSCULAR HGB CONC 34 g/dl (33.0-37.0); MEAN PLATELET VOLUME 9.8 fl (7.4-10.4); MONO # 0.3 K/mm3 (0.1-0.6); MONO % 9.2 % (1.7-9.3); PLATELET COUNT 83 K/mm3 (130-400); RED BLOOD COUNT 2.93 M/mm3 (4.20-5.60); REDCELL DISTRIBUTION WIDTH-CV 12.6 % (11.5-14.5)
[2022-02-11 08:18] LABS: HEMATOCRIT 29.1 % (42.0-52.0); HEMOGLOBIN 9.9 g/dl (13.5-18.0); MEAN CORPUSCULAR HEMOGLOBIN 34 pg (27-31)
[2022-02-11 08:27] LABS: ALBUMIN 2.7 gm/dL (3.4-4.8); CALCIUM 8.5 mg/dL (8.4-10.2); CREATININE, serum 3.76 mg/dL (0.72-1.25); PHOSPHOROUS 3.9 mg/dL (2.3-4.7); POTASSIUM 4.8 mmol/L (3.5-4.5)
--- NOTE | 2022-02-11 09:59 | NUR ---
CONSENT OBTAINED FROM PT FOR LP, VANCOMYCIN INFUSING
--- NOTE | 2022-02-11 10:27 | NUR ---
TYLENOL GIVEN FOR PAIN MANAGEMENT, DID NOT GIVE NORCO FOR AMS, ADDRESSED WITH DR. MEYERS, HE IS COMFORTABLE WITH GIVING PAIN MEDS.
--- NOTE | 2022-02-11 12:15 | NUR ---
PT VOMITING, SUSPECTED NORCO VOMITED UP, CANNOT GIVE MORE NORCO DUE TO EXCEEDING ACETAMINOPHEN LIMIT. PEDRO BROWN MADE AWARE, ZOFRAN ORDERED, ROXICODONE ORDERED, BOTH GIVEN. PT TAKEN TO LP
--- NOTE | 2022-02-11 13:35 | NUR ---
PT RETURNED FROM LP, FLAT TIME OF 1 HOUR FOLLOWED. ATTACHED TO POST OP VITALS, FRANCESCA FOR PAIN GIVEN.
[2022-02-11 13:51] LABS: CSF APPEARANCE CLEAR; CSF COLOR COLORLESS; CSF RBC 27 /mm3 (0-0)
[2022-02-11 14:08] LABS: GLUCOSE,CSF 114 mg/dL (40-70); TOTAL PROTEIN,CSF 93 mg/dL (15-45)
[2022-02-11 14:14] LABS: CSF MONONUCLEAR 100 % (70-100); CSF POLYMORPHONUCLEAR 0 % (0-6)
--- NOTE | 2022-02-11 14:50 | NUR ---
PT ESCORTED OUT VIA WHEELCHAIR. EDUCATED PT AND PT AND DAUGHTER ON DISCHARGE PAPERWORK, IV REMOVED, TELE REMOVED.
--- NOTE | 2022-02-11 15:24 | NUR ---
PT STILL REPORTING INC PAIN, NO RELIEF FROM X2 RAMIRO. PEDRO BROWN NOTIFIED AND MORPHINE ORDERED.
--- NOTE | 2022-02-11 18:04 | NUR ---
PT C/O PAIN IN BLE AND DESCRIBES SHOOTING PAIN, PT PLEASANT, AOX4, AT BEDSIDE, PT HAS BEEN OFF AND ON BED MENDIETA BUT NO BM TODAY, MIRALAX GIVEN AND PT PASSING GAS.
--- NOTE | 2022-02-11 19:48 | NUR ---
Pt nauseated, tx refused at this time. Pt requested I not wake him if he is sleeping at 0200 tx time. RN aware.
--- NOTE | 2022-02-11 21:00 | NUR ---
Patient is in bed, with nausea and vomiting. Pain in his feet. PRNs provided. Alert and oriented x 4, VSS, Telemetry in place, NSR. Patient needs help to move himself in the bed. Right now with 2L O2 NC. Assessment completed. No other needs at this time. Call light within reach.
[2022-02-12 04:01] VITALS: BP 133/78; PULSE 62; TEMP 97.8
--- NOTE | 2022-02-12 05:32 | NUR ---
Pt had nausea and vomiting in the beginning of the shift. Zofran provided. Some time was given to provide his night medciations, including for pain in his feet. He received his IV meds. No further pain or nausea medication required. VS ROSIE. Report will be given to day RN.
[2022-02-12 07:29] VITALS: BP 139/81; PULSE 60; TEMP 97.5
[2022-02-12 09:09] LABS: BASO % 0.6 % (0.0-2.0); EOS # 0.1 K/mm3 (0.0-0.7); EOS % 4.1 % (0.0-4.0); GRAN # 1.8 K/mm3 (1.4-6.5); GRAN % 57.7 % (42.2-75.2); LYMPH # 0.7 K/mm3 (1.2-3.4); LYMPH % 21.7 % (20.0-51.0); MEAN CELL VOLUME 101 fl (80.0-100.0); MEAN CORPUSCULAR HEMOGLOBIN 33 pg (27-31); MEAN CORPUSCULAR HGB CONC 33 g/dl (33.0-37.0); MEAN PLATELET VOLUME 10.3 fl (7.4-10.4); MONO # 0.5 K/mm3 (0.1-0.6); MONO % 15.6 % (1.7-9.3); PLATELET COUNT 79 K/mm3 (130-400); REDCELL DISTRIBUTION WIDTH-CV 12.6 % (11.5-14.5)
[2022-02-12 09:10] LABS: HEMATOCRIT 30.3 % (42.0-52.0)
[2022-02-12 09:28] LABS: ALBUMIN 2.8 gm/dL (3.4-4.8); CALCIUM 8.8 mg/dL (8.4-10.2); CREATININE, serum 2.34 mg/dL (0.72-1.25); PHOSPHOROUS 3.6 mg/dL (2.3-4.7); POTASSIUM 4.8 mmol/L (3.5-4.5)
--- NOTE | 2022-02-12 09:43 | NUR ---
Pt assessment complete. Pt is laying in bed upon entry, using the bedpan at the time. Pt is A/O x4. His breathing is even and unlabored on RA. Pt denies any pain at this time. Reports he is feeling much better. No N/V, reports having good stools, refuses stool softners this am. Mildred BLANCAS. No needs at this time. Call light within reach.
[2022-02-12 11:14] VITALS: BP 141/73; PULSE 57; TEMP 98
--- NOTE | 2022-02-12 13:04 | NUR ---
The patient is to start IVIG, per neurology. [facility] is following the patient.
[2022-02-12 15:32] VITALS: BP 126/65; PULSE 66; TEMP 98.5
--- NOTE | 2022-02-12 18:44 | NUR ---
Pt remained A/O x4 today. Reports intermittent pain to L foot, relieved by PRN pain medications. Eating and drinking without issues. Able to sit on the side of the bed with minimal assistance. Yina BLANCAS. No needs at this time.
[2022-02-12 19:59] VITALS: BP 135/65; PULSE 60; TEMP 98.4
--- NOTE | 2022-02-12 21:00 | NUR ---
Patient is aler and oriented x 4, at the bedside. More talkative. VSS. He is happy because today he was able to stand up with PT. Assessment completed, medications provided. Continues complaining of pain in his feet, PRN provided. Telemetry in place, NSR. No other needs at this time. Call light within reach.
[2022-02-12 23:30] VITALS: BP 117/58; PULSE 112; TEMP 98
[2022-02-13] VITALS (7 sets, daily range): BP systolic 119–161; BP diastolic 65–83; PULSE 56–82; TEMP 97.9–98.5
[2022-02-13 06:12] LABS: BASO % 0.5 % (0.0-2.0); EOS # 0.3 K/mm3 (0.0-0.7); EOS % 6.8 % (0.0-4.0); GRAN # 2.1 K/mm3 (1.4-6.5); GRAN % 52.7 % (42.2-75.2); LYMPH % 25.1 % (20.0-51.0); MEAN CELL VOLUME 101 fl (80.0-100.0); MEAN CORPUSCULAR HGB CONC 33 g/dl (33.0-37.0); MEAN PLATELET VOLUME 10.7 fl (7.4-10.4); MONO # 0.6 K/mm3 (0.1-0.6); MONO % 14.1 % (1.7-9.3); PLATELET COUNT 78 K/mm3 (130-400); RED BLOOD COUNT 2.89 M/mm3 (4.20-5.60); REDCELL DISTRIBUTION WIDTH-CV 12.5 % (11.5-14.5)
[2022-02-13 06:15] LABS: HEMATOCRIT 29.1 % (42.0-52.0); HEMOGLOBIN 9.5 g/dl (13.5-18.0); MEAN CORPUSCULAR HEMOGLOBIN 33 pg (27-31)
[2022-02-13 06:24] LABS: ALBUMIN 2.5 gm/dL (3.4-4.8); CALCIUM 8.5 mg/dL (8.4-10.2); CREATININE, serum 1.74 mg/dL (0.72-1.25); PHOSPHOROUS 3.7 mg/dL (2.3-4.7); POTASSIUM 4.6 mmol/L (3.5-4.5)
--- NOTE | 2022-02-13 06:31 | NUR ---
Patient has had a calm night. He contines with pain in his feet. Getting antibiotics. VSS. Report will be given to day RN.
--- NOTE | 2022-02-13 09:23 | NUR ---
Scheduled medications given. Shift assessment performed. VSS. Patient A&O. Physical therapy working with patient upon entry to the room. Patient states,"I dont really have any pain." bringing in breakfast for patient. Bran catheter in place, securment device in place, no kinks in tubing. Patient denies any pain, discomfort, SOA, or further needs at this time. Call light in reach. Fall percuations in place.
--- NOTE | 2022-02-13 17:52 | NUR ---
Patient has had an ok day. Pain medication given PRN. Hot pack placed on left hip. Patient currently resting in bed comfortably. Denies any pain, discomfort, SOA, or further needs at this time. States that he is not hungry this evening and that he doesn't want supper. Call light in reach. Fall precautions in place. VSS. Patient A&O.
--- NOTE | 2022-02-13 21:00 | NUR ---
Patient is in bed, alert and oriented x 4, states he would like to continue with his pain medications since they alow him to sleep. Telemetry in place, NSR. RA. Nannette lino with yellow clear output. Assessment completed, meds provided. No further needs at this time. Call light within reach.
--- NOTE | 2022-02-14 00:36 | NUR ---
Pt refused tx at this time and stated that he does not want the tx at 0200 either and to please NOT wake him.
[2022-02-14 03:59] VITALS: BP 149/97; PULSE 71; TEMP 97.7
--- NOTE | 2022-02-14 05:47 | NUR ---
Patient has had a calm night. VSS. Antibiotics provided. All needs met. Report will be given to day RN.
[2022-02-14 06:23] LABS: BASO % 0.7 % (0.0-2.0); EOS # 0.2 K/mm3 (0.0-0.7); EOS % 4.8 % (0.0-4.0); GRAN # 2.7 K/mm3 (1.4-6.5); GRAN % 61.3 % (42.2-75.2); LYMPH # 0.9 K/mm3 (1.2-3.4); LYMPH % 19.6 % (20.0-51.0); MEAN CELL VOLUME 100 fl (80.0-100.0); MEAN CORPUSCULAR HGB CONC 33 g/dl (33.0-37.0); MEAN PLATELET VOLUME 10.7 fl (7.4-10.4); MONO # 0.6 K/mm3 (0.1-0.6); MONO % 12.9 % (1.7-9.3); PLATELET COUNT 82 K/mm3 (130-400); RED BLOOD COUNT 2.91 M/mm3 (4.20-5.60); REDCELL DISTRIBUTION WIDTH-CV 12.3 % (11.5-14.5)
[2022-02-14 06:40] LABS: ALBUMIN 2.6 gm/dL (3.4-4.8); CALCIUM 8.5 mg/dL (8.4-10.2); CREATININE, serum 1.5 mg/dL (0.72-1.25); PHOSPHOROUS 3.3 mg/dL (2.3-4.7); POTASSIUM 4.5 mmol/L (3.5-4.5)
[2022-02-14 06:48] LABS: HEMATOCRIT 29.2 % (42.0-52.0); HEMOGLOBIN 9.6 g/dl (13.5-18.0); MEAN CORPUSCULAR HEMOGLOBIN 33 pg (27-31)
[2022-02-14 07:20] VITALS: BP 159/74; PULSE 63; TEMP 98.1
--- NOTE | 2022-02-14 10:42 | NUR ---
Scheduled medications given. Shift assessment performed. Patient denies any pain at this time. States that he is having discomfort at his lino catheter site. Orders to take lino catheter out recieved from Jain. Yina guadarrama. 8 ml of fluid taken out of balloon, balloon intact, jan care completed. Patietn is having N/V. Small amount of emesis noted, consited of green mucous. Patient offered zofran, which was refused. Patient denies any further pain, discomfort, SOA, or further needs at this time. Call light in reach. Fall percautions in place.
[2022-02-14 11:37] VITALS: BP 114/67; PULSE 73; TEMP 98.1
[2022-02-14 16:48] VITALS: BP 135/66; PULSE 71; TEMP 98.7
--- NOTE | 2022-02-14 19:12 | NUR ---
Patient has had an ok day. VSS. Patient A&O. Pain medications given PRN. Patient currently denies any pain, discomfort, SOA, or further needs at this time. Call light in reach. Fall percaution in place.
[2022-02-14 20:09] VITALS: BP 127/78; PULSE 88; TEMP 98.3
[2022-02-15] VITALS (7 sets, daily range): BP systolic 104–158; BP diastolic 57–77; PULSE 56–69; TEMP 97.4–98.3
--- NOTE | 2022-02-15 01:29 | NUR ---
Pt alert and oriented this evening. Calm and cooperative. Reported pain x2 this evening. Prn pain medications administered per orders. Pt reports relief. Pt reported feeling warm earlier. Temp assessed and pt was afebrile. Turned air down in room and put fan on pt and he reported relief. Pt had x2 voids so far this evening and a small BM. No bleeding noted from genital area. Vital signs stable. Pt has improved in strength, able to turn independently in bed and can sit on side of bed with minimal assistance. Vital signs stable. FSBS 171 this evening. Shift assessment performed. Medications administered per orders and education provided. Pt tolerated PO medications well. Pt reports no questions, will continue to monitor.
--- NOTE | 2022-02-15 05:06 | NUR ---
Pt had an uneventful night. Alert and oriented when awake, resting currently. Pt has not reported any more pain overnight. Prn roxicodone and prn tylenol only administered x1 overnight for pain. Vital signs stable. Pt is on room air. Had multiple voids overnight. 2 of the voids were unmeasured, because the pt was unable to utilize the urinal. Pt also had 2 soft small BM's overnight. Medications administered per orders and tolerated well. Pt reports no questions. No concerns at this time, will continue to monitor.
[2022-02-15 07:16] LABS: BASO % 0.7 % (0.0-2.0); EOS # 0.3 K/mm3 (0.0-0.7); EOS % 4.2 % (0.0-4.0); GRAN # 4.2 K/mm3 (1.4-6.5); GRAN % 68.6 % (42.2-75.2); LYMPH % 15.5 % (20.0-51.0); MEAN CELL VOLUME 98 fl (80.0-100.0); MEAN CORPUSCULAR HGB CONC 34 g/dl (33.0-37.0); MEAN PLATELET VOLUME 10.5 fl (7.4-10.4); MONO # 0.6 K/mm3 (0.1-0.6); MONO % 10.3 % (1.7-9.3); PLATELET COUNT 94 K/mm3 (130-400); RED BLOOD COUNT 2.71 M/mm3 (4.20-5.60); REDCELL DISTRIBUTION WIDTH-CV 12.5 % (11.5-14.5)
[2022-02-15 07:20] LABS: ALBUMIN 2.5 gm/dL (3.4-4.8); CALCIUM 8.7 mg/dL (8.4-10.2); CREATININE, serum 1.26 mg/dL (0.72-1.25); PHOSPHOROUS 3.8 mg/dL (2.3-4.7); POTASSIUM 4.3 mmol/L (3.5-4.5)
[2022-02-15 07:25] LABS: HEMATOCRIT 26.5 % (42.0-52.0); MEAN CORPUSCULAR HEMOGLOBIN 33 pg (27-31)
--- NOTE | 2022-02-15 10:57 | NUR ---
PATIENT IN GOOD SPIRITS, WANTING TO HAVE TELE DC'D. COMPLAINTS OF HEADACHE. TYLENOL PROVIDED. AWAITING BREAKFAST. INQUIRING ABOUT MOVING DOWN TO IPR SOON. MOVES IN BED WELL, TURNS INDEPENDENTLY, SAT UP WITH PULL BAR ON OWN. GENERAL OPERATOR STRENGTH DIMINISHED. LANGUAGE MIDLY GROUGH, BUT NOT INTENTIONALLY OFFENSIVE.
[2022-02-15 12:00] LABS: HSV 2 DNA PCR QUAL Not Detected (())
[2022-02-15 13:44] LABS: CSF OLIG BD INTERPRETATION 1 bands (<2); SE OLIGOCLONAL BANDING 0 bands (())
--- NOTE | 2022-02-15 14:30 | NUR ---
IPR still following patient and IPR Director, Cara to meet with patient today. Discharge date unknown at this time.
--- NOTE | 2022-02-15 19:08 | NUR ---
PATIENT C/O 8-9(10) PAIN. HEADACHE. NON-RESPONSIVE TO ROXYCODONE OR TYLENOL. PAIN ON URINATIO THIS AFTERNOON WITH LOW OUTPUT, PATIENT AWKNOWLEDGED DECREASED ORAL FLUID INTAKE. 75ML/HR OF NS STARTED, FIORCET ORDERED FOR HEADACHE FROM DR. RASCON GIVEN AT BEDSIDE REPORT. PATIENT NOTED IV FLUIDS CORRESPONDING WITH DECREASING PAIN. IF INCREASED IN MORING RECOMMENDS BLOOD PATCH FROM ANESTHESIA OVER LP SITE.
--- NOTE | 2022-02-15 23:04 | NUR ---
Pt was removed from his client service coordinator around 1100 on 02/15 by day shift, but no orders to d/c the client service coordinator were put in. Notified the provider this evening, who was comfortable with the pt staying off telemetry. I put in an order to d/c the telemetry box.
--- NOTE | 2022-02-16 00:14 | NUR ---
Pt alert and oriented this evening. Resting in bed currently awake. Continues to complain of back pain and foot pain. States he has pain where the lumbar puncture was performed. The site does not appear red or swollen. Pt also complained of headahce at the beginning of the shift, but reports that it went away after the fioracet was administered. Pt has had multiple voids so far this evening. Urine does not appear to have any blood in it. Was reported that the pt complained of burning while he voided during day shift. Has not complained of that tonight. No bleeding noted in the genital area. Shift assessment performed. Medications administered per orders and education provided. Vital signs are stable. Afebrile. Blood sugar was 255 this evening. Pt has been turning well in the bed this evening with minimal assistance. Pt reports no questions. Will continue to monitor.
--- NOTE | 2022-02-16 04:55 | NUR ---
No significant changes overnight. Pt is alert and oriented when awake, is currently sleeping. Pt has not complained of acute pain this morning. Prn roxicodone was administered x2 overnight and prn tylenol x1 for back and foot pain. Pt has not complained of burning while voiding. Urine is currently a brighter orange color, d/t the AZO medication. Pt had adequate urine output overnight. No bleeding from the genital area noted. Lumbar puncture site on back appears dry/no redness/no edema. Vital signs remain stable. IV fluids continue running, as well as antibiotoics as ordered. Pt reports no questions, will continue to monitor.
[2022-02-16 06:02] LABS: BASO # 0.1 K/mm3 (0.0-0.2); BASO % 0.7 % (0.0-2.0); EOS # 0.3 K/mm3 (0.0-0.7); EOS % 4.9 % (0.0-4.0); GRAN # 4.3 K/mm3 (1.4-6.5); GRAN % 64.8 % (42.2-75.2); LYMPH # 1.3 K/mm3 (1.2-3.4); LYMPH % 18.7 % (20.0-51.0); MEAN CELL VOLUME 99 fl (80.0-100.0); MEAN CORPUSCULAR HEMOGLOBIN 33 pg (27-31); MEAN CORPUSCULAR HGB CONC 33 g/dl (33.0-37.0); MEAN PLATELET VOLUME 10.5 fl (7.4-10.4); MONO # 0.7 K/mm3 (0.1-0.6); MONO % 9.7 % (1.7-9.3); PLATELET COUNT 128 K/mm3 (130-400); RED BLOOD COUNT 3.02 M/mm3 (4.20-5.60); REDCELL DISTRIBUTION WIDTH-CV 12.6 % (11.5-14.5)
[2022-02-16 06:24] LABS: ALBUMIN 2.6 gm/dL (3.4-4.8); CALCIUM 8.5 mg/dL (8.4-10.2); CREATININE, serum 1.2 mg/dL (0.72-1.25); PHOSPHOROUS 3.4 mg/dL (2.3-4.7); POTASSIUM 4.2 mmol/L (3.5-4.5)
[2022-02-16 07:26] VITALS: BP 136/74; PULSE 57; TEMP 97.6
--- NOTE | 2022-02-16 10:33 | NUR ---
MRI UNABLE TO PERFORM ORDERED TEST, PARAM AGREEING WITH DECISION. DR. ROSA NOTIFIED AND STATED HE DID NOT FEEL TRANSFER TO [facility] WAS NECESSARY FOR MRI AND THAT HE WOULD DISCUSS ALTERNATIVE OPTIONS WITH PT LATER AFTER CLINIC. ATTEMPTED TO RELAY TO HOSPITALIST TEAM, TALISHA BROWN DID NOT ANSWER AT THIS TIME, WILL ATTEMPT AGAIN LATER.
--- NOTE | 2022-02-16 11:08 | NUR ---
PATIENT A&O, ASSISTED TO SIDE OF BED, DANGLE. NO COMPLAINTS OF PAIN AT THIS TIME. AWAITING MRI OF PELVIS. NO CONCERNS AT THIS TIME. AWAITING DISCHARGE PLANNING TO IPR, IVIG THERAPY START OR SURGICAL INTERVENTIONS FOR PERIANAL ABCESS WITH FISTUAL VS. CYST.
[2022-02-16 11:14] VITALS: BP 157/76; PULSE 52; TEMP 98
[2022-02-16 11:49] LABS: SE OLIGOCLONAL BANDING 0
[2022-02-16 15:30] VITALS: BP 140/81; PULSE 67; TEMP 98.2
--- NOTE | 2022-02-16 17:41 | NUR ---
PATIENT SITTING ON EDGE OF BED FOR MOST OF THE DAY TODAY. C/O SIGNIFICANT HEADACHE AGAIN TODAY. FLUIDS CONTINUED. FIORECT GIVEN, PATIENT DID NOT REQUEST ANY ADDITIONAL PAIN RELIEF MEDICATIONS. MRI CANCELLED DUE PATIENT SIZE. EXPLORATORY WITH POSSIBLE EXCISION OR I&D TOMORROW WITH DR. ROSA ON VICKY-RECTAL AREA. PATIENT TOOK NAP IN LATER AFTERNOON. NO SIGNIFICANT EVENTS, PLESANT BUT IN LOW SPIRITS.
[2022-02-16 20:00] VITALS: BP 125/71; PULSE 66; TEMP 97.4
[2022-02-17] VITALS (18 sets, daily range): BP systolic 97–171; BP diastolic 45–101; PULSE 49–66; TEMP 97.1–98.2
[2022-02-17 05:16] LABS: BASO # 0.1 K/mm3 (0.0-0.2); BASO % 0.7 % (0.0-2.0); EOS # 0.4 K/mm3 (0.0-0.7); EOS % 5.5 % (0.0-4.0); GRAN # 4.4 K/mm3 (1.4-6.5); GRAN % 66.1 % (42.2-75.2); LYMPH # 1.3 K/mm3 (1.2-3.4); LYMPH % 18.9 % (20.0-51.0); MEAN CELL VOLUME 103 fl (80.0-100.0); MEAN CORPUSCULAR HGB CONC 32 g/dl (33.0-37.0); MEAN PLATELET VOLUME 10.2 fl (7.4-10.4); MONO # 0.5 K/mm3 (0.1-0.6); MONO % 7.6 % (1.7-9.3); PLATELET COUNT 141 K/mm3 (130-400); RED BLOOD COUNT 2.82 M/mm3 (4.20-5.60); REDCELL DISTRIBUTION WIDTH-CV 12.7 % (11.5-14.5)
[2022-02-17 05:25] LABS: HEMATOCRIT 29.1 % (42.0-52.0); HEMOGLOBIN 9.3 g/dl (13.5-18.0); MEAN CORPUSCULAR HEMOGLOBIN 33 pg (27-31)
[2022-02-17 05:37] LABS: ALBUMIN 2.6 gm/dL (3.4-4.8); CALCIUM 8.4 mg/dL (8.4-10.2); CREATININE, serum 1.15 mg/dL (0.72-1.25); PHOSPHOROUS 3.3 mg/dL (2.3-4.7); POTASSIUM 4.5 mmol/L (3.5-4.5)
--- NOTE | 2022-02-17 08:15 | NUR ---
ASSESSMENT PERFORMED, FLUIDS HUNG FOR PROCEDURE, PT ARRIVING WHEN YOUTH CARE PROFESSIONAL ARRIVED TO TAKE PT DOWN FOR SURGERY, PT LEAVING FLOOR SHORTLY AFTER
--- NOTE | 2022-02-17 10:35 | NUR ---
PT AGITATED, KEEPS STATING "COME ON, WERE GOING HOME, I CANT FEEL MY LEGS". DRAIN IN PLACE, PT MOVING DURING VITAL SIGNS, ATTACHED PT ANX AND FLUIDS, PT REPORTS SENSATION MID THIGH
--- NOTE | 2022-02-17 13:15 | NUR ---
EDUCATED PT ON SIDE EFFECTS OF IVIG, MEDICATIONS STARTED USING PRINT OUT. PT C/O TESTICULAR DISCOMFORT, LITTLE DRAINAGE VISUALIZED FROM DRAIN, ATTACHED TO VITALS TO MONITOR IVIG
--- NOTE | 2022-02-17 13:47 | NUR ---
ASSESSING PT BP WITH IVIG, PT HYPOTENSIVE, PHARMACY NOTIFIED AND PA NOTIFIED, ORDERED TO HOLD 30MIN AND REASSESS BP. IVIG ON HOLD, WILL REASSESS BP, PT DENIES S/S OF HYPOTENSION. PT AND PT FAMILY UPDATED ON PLAN
--- NOTE | 2022-02-17 14:30 | NUR ---
BP RETURNED TO NORMAL. IVIG RESTARTED.
--- NOTE | 2022-02-17 15:00 | NUR ---
PT REPORTING NEED TO HAVE BM, BEDPAN PLACED, LITTLE DRAINAGE ON 4X4. 4X[address] REM[address] PL[address] NEW AFTER BM
--- NOTE | 2022-02-17 16:01 | NUR ---
DINNER ORDER PLACED FOR PT, CONTINUING TO MONITOR PT VITAL SIGNS. NO HYPOTENSION NOTED.
--- NOTE | 2022-02-17 19:02 | NUR ---
PT ACCIDENTALLY PULLED OUT IV DURING IVIG INFUSION. NEW BOTTLE HUNG, 20G IV STARTED TO LH AND WRAPPED WITH MADELEINE WRAP.
--- NOTE | 2022-02-17 19:21 | NUR ---
Pt refusing tx at this time and also requested to NOT be woke up at 0200 tx time.
[2022-02-18] VITALS (13 sets, daily range): BP systolic 103–173; BP diastolic 58–77; PULSE 51–89; TEMP 97.3–98.1
--- NOTE | 2022-02-18 01:14 | NUR ---
Pt alert and oriented this evening, resting currently. Reported pain at the beginning of the evening in the jan-anal area. Pt reports the area being "sore" and feeling "raw". Drain site had some drainage/stool on the 4x4 gauze. Changed the dressing. Administered prn pain medication, pt reported relief, but that bottom was still sore. Pt sat up to void without assistance and reports that he hit his toe on the bedside table, which began to bleed. I covered the cut with a gauze dressing after holding pressure and the bleeding stopped. Shift assessment performed. Medications administered per orders and education provided. Pt continued on the IVIG this evening, received 3 more doses and tolerated well. Pt continues on antibx. Pt becomes dyspneic and has expiratory wheezing on exertion, but once he is resting his RR is in WNL with no wheezing. Pt has good output this evening, urine is an orange color d/t the AZO. Pt did not report any burning with urination. Pt is able to independently move himself around in the bed and able to sit up on the side of the bed with minimal assistance. Pt does report any questions. Will continue to monitor.
[2022-02-18 06:29] LABS: MEAN CELL VOLUME 99 fl (80.0-100.0); MEAN CORPUSCULAR HGB CONC 33 g/dl (33.0-37.0); MEAN PLATELET VOLUME 10.3 fl (7.4-10.4); PLATELET COUNT 163 K/mm3 (130-400); RED BLOOD COUNT 2.77 M/mm3 (4.20-5.60); REDCELL DISTRIBUTION WIDTH-CV 12.5 % (11.5-14.5)
--- NOTE | 2022-02-18 06:30 | NUR ---
No adverse events overnight. Pt had multiple voids, no BM overnight. Changed dressing on perianal drain x2. Site remains clean and dry. Prn pain medication administered x2 for "bottom" pain, pt reported relief. Vital signs stable. Pt alert and oriented, sitting up on side of bed currently. IV antibx continue. Pt tolerated morning medications well. Pt reports no questions, will continue to monitor.
[2022-02-18 06:39] LABS: HEMATOCRIT 27.3 % (42.0-52.0); MEAN CORPUSCULAR HEMOGLOBIN 32 pg (27-31)
[2022-02-18 06:41] LABS: ALBUMIN 2.5 gm/dL (3.4-4.8); CALCIUM 8.4 mg/dL (8.4-10.2); CREATININE, serum 1.16 mg/dL (0.72-1.25); PHOSPHOROUS 2.6 mg/dL (2.3-4.7); POTASSIUM 4.3 mmol/L (3.5-4.5)
[2022-02-18 07:11] LABS: LYMPHOCYTE 31 % (20.0-51.0); NEUTROPHILS 65 % (42.0-75.2)
[2022-02-18 07:12] LABS: HYPOCHROMIA 1+; SCHISTOCYTES 1+
--- NOTE | 2022-02-18 08:15 | NUR ---
Shift assessment complete. Pt resting in bed. A&Ox4 but conversation confused at times. 3+ swelling to BLE. Lungs diminished to auscultation. Vitals stable. Denies pain, SOA, or other concerns. Rectal drain in place, no drainage on gauze at this time. Continuing to monitor.
--- NOTE | 2022-02-18 09:50 | NUR ---
IVIG INFUSION STARTED AT THIS TIME. VITALS STABLE. BP 136/63, HR 66, TEMP 97.6, RR 14, O2 98%.
[2022-02-18] MEDS ORDERED: AMOXICILLIN 50500 MG PO (10:15)
[2022-02-18] MEDS ORDERED: FLOMAX 0.40.4 MG/CAP PO (10:17)
[2022-02-18] MEDS ORDERED: NICODERM C21 MG/PATC TD (10:18)
[2022-02-18] MEDS ORDERED: NICORETTE GUM2 MG BC (10:18)
[2022-02-18] MEDS ORDERED: MIRALAX PA17 GM/Dose PO (10:20)
[2022-02-18] MEDS ORDERED: TYLENOL 325MG325 MG PO (10:23)
[2022-02-18] MEDS ORDERED: ROXICODONE 55 MG/TAB PO (10:23)
--- NOTE | 2022-02-18 11:35 | NUR ---
Patient still being followed by IPR director. IPR director is still working on getting a authorization from the patients insurance. Patient is completing second round of IVIG today. PA updated with the above.
--- NOTE | 2022-02-18 13:39 | NUR ---
IPR director notified this SW that insurance has been approved and she will have a bed available for the patient tomorrow.
--- NOTE | 2022-02-18 18:44 | NUR ---
Pt received IVIG infusion today and tolerated well. Only complaints today were of generalized body aches, relieved by jef. Supposed to go to IPR tomorrow.
--- NOTE | 2022-02-18 22:10 | NUR ---
Patient assessed around 2100. Alert and oriented x 4 at this time. Peripheral INT to left hand, with IV ABX per orders. Reports level 7 pain to right foot. Given PRN Roxicodone as requested for pain. Denies SOB and dyspnea. LS CTA in upper lobes, diminished in lower. HRR. Telemetry in place. BSAx4. Abdomen soft and non-tender. Edema BLE. Patient voices no questions, needs, or concerns at this time. In bed with call light within reach.
[2022-02-19 03:59] VITALS: BP 169/78; PULSE 80; TEMP 97.9
--- NOTE | 2022-02-19 05:25 | NUR ---
Patient has recieved PRN Roxicodone twice this shift as requested for pain to right foot. Denies SOB and dyspnea. Has been using urinal. Voices no questions, needs, or concerns at this time. In bed with call light within reach.
[2022-02-19 06:25] LABS: MEAN CELL VOLUME 101 fl (80.0-100.0); MEAN CORPUSCULAR HGB CONC 33 g/dl (33.0-37.0); MEAN PLATELET VOLUME 10.1 fl (7.4-10.4); PLATELET COUNT 163 K/mm3 (130-400); RED BLOOD COUNT 2.84 M/mm3 (4.20-5.60); REDCELL DISTRIBUTION WIDTH-CV 12.9 % (11.5-14.5)
[2022-02-19 06:38] LABS: HEMATOCRIT 28.6 % (42.0-52.0); HEMOGLOBIN 9.4 g/dl (13.5-18.0); MEAN CORPUSCULAR HEMOGLOBIN 33 pg (27-31)
[2022-02-19 06:45] LABS: ALBUMIN 2.6 gm/dL (3.4-4.8); CALCIUM 8.5 mg/dL (8.4-10.2); CREATININE, serum 1.22 mg/dL (0.72-1.25); PHOSPHOROUS 2.8 mg/dL (2.3-4.7); POTASSIUM 4.1 mmol/L (3.5-4.5)
[2022-02-19 07:27] VITALS: BP 154/78; PULSE 87; TEMP 98.6
[2022-02-19 07:39] LABS: BAND 4 % (0-10); LYMPHOCYTE 28 % (20.0-51.0); MYELOCYTE 1 % (0-0); NEUTROPHILS 62 % (42.0-75.2)
[2022-02-19 07:40] LABS: PLATELET ESTIMATE NORMAL (NORMAL)
--- NOTE | 2022-02-19 09:03 | NUR ---
Pt assessment complete. Pt is sitting up on the side of the bed upon entry, he is A/O X4. His breathing is even and unlabored on RA. Pt denies SOB. Reports chronic pain to L foot, denies need for intervention at this time. 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 Drain to rectum dependent. POC discussed with patient who verbalizes understanding. Call light within reach.
--- NOTE | 2022-02-19 13:10 | NUR ---
Pt transferred down to [facility] at this time.
== END 2022-02-19 13:10 | DRG 871 ==
LOC: COL.ER 15:25 → MEDICAL 19:01
PROVIDERS: Internal Medicine Nephrology; Personal Emergency Response Attendant; Psychiatry & Neurology Neurology; Registered Nurse; Student in an Organized Health Care Education/Training Program; Surgery; ADMIT Internal Medicine
PROC: 009U3ZX Drainage of Spinal Canal, Percutaneous Approach, Diagnostic (ICD-10-PCS; 2022-02-11)
PROC: 4A1BXSH Monitoring of Gastrointestinal Vascular Perfusion using Indocyanine Green Dye, External Approach (ICD-10-PCS; principal; 2022-02-17 08:30)
DX: A41.9 Sepsis, unspecified organism (principal); G93.41 Metabolic encephalopathy; J96.01 Acute respiratory failure with hypoxia; G61.81 Chronic inflammatory demyelinating polyneuritis; N39.0 Urinary tract infection, site not specified; N17.9 Acute kidney failure, unspecified; K61.0 Anal abscess; K60.3 Anal fistula; B96.89 Other specified bacterial agents as the cause of diseases classified elsewhere; E11.42 Type 2 diabetes mellitus with diabetic polyneuropathy; I10 Essential (primary) hypertension; K21.9 Gastro-esophageal reflux disease without esophagitis; E87.5 Hyperkalemia; B95.2 Enterococcus as the cause of diseases classified elsewhere; M21.372 Foot drop, left foot; M21.371 Foot drop, right foot; D69.6 Thrombocytopenia, unspecified; R33.9 Retention of urine, unspecified; R31.9 Hematuria, unspecified; E66.01 Morbid (severe) obesity due to excess calories; E78.5 Hyperlipidemia, unspecified; K59.00 Constipation, unspecified; R53.81 Other malaise; Z79.4 Long term (current) use of insulin; Z79.82 Long term (current) use of aspirin; Z79.891 Long term (current) use of opiate analgesic; Z85.038 Personal history of other malignant neoplasm of large intestine; Z86.16 Personal history of COVID-19; Z89.412 Acquired absence of left great toe
CPT/HCPCS: 99223-AI; 99232-AI; 99233-AI; 99239; J0330; J0690; J0696; J1200; J1569; J1644; J1815; J2270; J2405; J2543; J2704; J2920; J3010; J3370; J7030; J7040; J7050

== ENCOUNTER 2022-02-19 10:30 | Inpatient (IN) | payer OTHER ==
[~2022-02-19] VITALS: Ht 195.6 cm; Wt 169.6 kg
[~2022-02-19 10:30] MED LIST changes: +FLOMAX 0.40.4 MG/CAP PO; +FOLIC ACID 11 MG/TA1 PO; +HUMALOG100 U/ML SQ; +MIRALAX PA17 GM/Dose PO; +NICODERM C21 MG/PATC TD; +NICORETTE GUM2 MG BC; +NYAMYC100000 U/G TP; +TYLENOL 325MG325 MG PO; +ZYLOPRIM 100MG100 MG PO; +ZYRTEC 10MG10 MG PO
--- NOTE | 2022-02-19 13:00 | NUR ---
Pt to room 339 from 309. Oriented pt to his room and the IPR routine. Pt is very short and does not appear happy. Pt demanding that his bed be closer to the bathroom so that he can get in there. Discussed with pt that he was not able to walk to the bathroom in his other room due to weakness and that it would take time for him to get his strength back. Pt was very impatient and hollered, well then how am i supposed to brigitte and fred. Discussed that he would continue to go to the bathroom using a urinal and bed mcallister the same as he did on medical. Or use the sit to stand lift to get in to the bathroom. Pt then wanted his belongings all put next to his bed so that he had them when he needed them to get dressed etc. Informed him that he would continue to have a nurse and staff with him at all times to help get what items he needs. Alo in to work with pt
--- NOTE | 2022-02-19 17:30 | NUR ---
Pt much more calm now as compared to when he transferred over. Pt did void using the urinal and there was some blood present. Was not able to tell where the blood came from. Output did not appear to have any blood in it, but no cut seen either. Pt was concerned about getting the clean sheets dirty. Pt was very polite at this time. No output noted from drain. Assisted pt with getting clean underwear on. Pt does not want any dinner for tonight. Held the schedule insulin due to him not eating. Discussed this with Le BROWN. SS ordered.
[2022-02-19 17:33] VITALS: BP 162/68; PULSE 56; TEMP 98.1
[2022-02-20 05:48] VITALS: BP 139/79; PULSE 64; TEMP 98.2
--- NOTE | 2022-02-20 06:45 | NUR ---
Report received, assumed care for day shift.
--- NOTE | 2022-02-20 08:30 | NUR ---
Patient has refused breakfast this morning. Current blood sugar is 120 so diabetic medications held. Patient states he does not plan on eating lunch either. Will check back with patient closer to lunch for decision.
--- NOTE | 2022-02-20 09:47 | NUR ---
Notified by PT that patient had dropped a weight on his left foot and was bleeding from the second toe. Assessed at this time. Pressure dresssing applied to left foot second toe. Will redress once back to floor.
--- NOTE | 2022-02-20 11:00 | NUR ---
Call from dietary about lunch tray. Patient refusing lunch as well. Current blood sugar is 174. Discussed with Dr Zamora and new orders received to just use high dose sliding scale.
--- NOTE | 2022-02-20 15:33 | NUR ---
Family at bedside visiting.
--- NOTE | 2022-02-20 16:15 | NUR ---
Improvement Lead met with patient, Jamin, for intake assessment/discharge planning. He presents alert and oriented, intermittently tearful, notably utilizing profanity and loud voice; he is observed to be a large man. This Social Work notes no sense of concern for patient threat of harm at patient bedside. Patient describes irritability with nursing staff, "I've been a jerk," noting he feels a sense of helplessness and loss of independence to be assisted with his ADLs. 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 He states he is anxious to return to home. He accepts a phone call from his adult daughter Citlaly Snow ([phone]) and is observed to repeatedly and emphatically encourage his daughter's safety with the bulls. He states his [id number] had a baby boy yesterday. He feels he is not being "pushed" hard enough in therapy, and he does not want to stay two weeks, though he did inform his physical therapist he would try for a week, noting he has made significant progress in recovery from one week ago. He states he has various durable medical equipment at home for his use, including: shower chair, bedside commode, toilet riser, walker, wheelchair and bath handles. He states he has 3 canes, as well. He identifies a recent struggle to complete his ADLs and IADLs due to infection. "I'm ready to walk." Patient is tearful when discussing his spouse Carlyn ([phone]) of 39 years. He informs "She's is the shits," and states her importance to him; he has fought for their marriage over the years to preserve. Patient reports he has alot to recover for. Patient informs he obtained DPOA-HC paperwork approximately one week ago, but believes his spouse took it home. She will return later today between 2:00-3:00 to complete. 15:31: Improvement Lead confirms patient spouse has arrived and met with both to facilitate DPOA-HC paperwork completed; RN supports completion as well. Paperwork is placed in patient chart for filing and copies given to patient. Patient and spouse express no further needs at this time; patient is encouraged to ask for help as needed, and to be open to receiving as well. Patient states, "It's really hard for me to ask for help." *Discharge plan pending progress in IPR; Social Work continues to follow*
--- NOTE | 2022-02-20 16:20 | NUR ---
Patient up to wheelchair using slide board with stand by assist. /patient wish to wheel around the floor.
[2022-02-20 17:54] VITALS: BP 169/72; PULSE 59; TEMP 98.3
--- NOTE | 2022-02-20 18:02 | NUR ---
Patients brought food from outside for dinner.
--- NOTE | 2022-02-20 18:23 | NUR ---
Report to Irina PRETTY
--- NOTE | 2022-02-20 19:32 | NUR ---
PT RESTING IN BED. NO FURTHER BLEEDING NOTED TO LT 2ND TOE WOUND DRSG.
--- NOTE | 2022-02-20 21:10 | NUR ---
SEE MAR FOR PAIN MED GIVEN FOR RECTAL WOUND PAIN.
--- NOTE | 2022-02-20 21:40 | NUR ---
PT RESTING IN BARIATRIC BED. READY FOR SLEEP. GAVE MELATONIN. CALL LIGHT IN REACH.
[2022-02-21 05:40] VITALS: BP 150/93; PULSE 56; TEMP 97.6
--- NOTE | 2022-02-21 06:48 | NUR ---
appears to be sleeping, in bed with lights off, eyes closed, resp quiet and easy
--- NOTE | 2022-02-21 07:45 | NUR ---
appears to continue to sleep
--- NOTE | 2022-02-21 08:30 | NUR ---
entered room and patient is awake now and talking loudly and surprised it is already 0830, states he has been sleeping well, also c/o pain to rectal area and testicles but this is not anything new, full assessment completed, see interventions for further info, sits up on side of bed independently and uses urinal, declines having breakfast this am, is pleasant and cooperative, has dressing to left foot and has 1cm bloody drainage to gauze on left second toe, provided coffee per his request and denies other needs
--- NOTE | 2022-02-21 09:51 | NUR ---
c/o rectal pain and requesting pain pill, medicated with roxicodone 5mg
--- NOTE | 2022-02-21 10:19 | NUR ---
appears to be dozing, lying in bed with eyes closed, resp quiet and easy
--- NOTE | 2022-02-21 14:09 | NUR ---
here to visit, assisted him with some perianal care, he rolled to side and drain intact and area around anus is without redness or swelling, does continue to c/o pain in rectal area, medicated with roxicodone 5mg
--- NOTE | 2022-02-21 14:50 | NUR ---
ready to get up, he transfers from bed to with the slide board independently with staff standby, remains at bedside
--- NOTE | 2022-02-21 16:20 | NUR ---
had returned to bed from but now is back up and into , is able to move to and back to bed independently with use of slide board, will go to garden area with and family to visit
[2022-02-21 18:00] VITALS: BP 154/85; PULSE 69; TEMP 98.5
--- NOTE | 2022-02-21 18:02 | NUR ---
returned from visiting with family and back to bed with use of slide board,
--- NOTE | 2022-02-21 18:13 | NUR ---
medicated with roxicodone 5mg 1 tab for c/os pain
--- NOTE | 2022-02-21 18:45 | NUR ---
shift report given to SUKHWINDER Arevalo
--- NOTE | 2022-02-21 21:00 | NUR ---
PT RESTING IN BARIATRIC BED. HAVING PAIN COCCYS AND LEGS BUT WILL WAIT TILL 2200 FOR PAIN MED. CHANGED DRSG TO LT FOOT 2ND TOE TO BANAIDS- SM CONTUSION TO TOENAIL. ZYRTEC GIVEN FOR ITCHY SKIN. CALL LIGHT IN REACH.
--- NOTE | 2022-02-22 02:40 | NUR ---
PT INCONTINENT OF URINE AND STOOL. CHANGED LINENS AND CLOTHING. SEE MAR FOR ROXICODONE GIVEN FOR BILAT LEG PAIN.
[2022-02-22 05:40] VITALS: BP 135/55; PULSE 63; TEMP 97.6
[2022-02-22 06:09] LABS: BASO # 0.1 K/mm3 (0.0-0.2); BASO % 1.3 % (0.0-2.0); EOS # 0.3 K/mm3 (0.0-0.7); EOS % 4.8 % (0.0-4.0); GRAN # 2.7 K/mm3 (1.4-6.5); GRAN % 51.7 % (42.2-75.2); LYMPH # 1.5 K/mm3 (1.2-3.4); LYMPH % 29.1 % (20.0-51.0); MEAN CELL VOLUME 99 fl (80.0-100.0); MEAN CORPUSCULAR HGB CONC 33 g/dl (33.0-37.0); MEAN PLATELET VOLUME 10.1 fl (7.4-10.4); MONO # 0.6 K/mm3 (0.1-0.6); PLATELET COUNT 164 K/mm3 (130-400); RED BLOOD COUNT 2.82 M/mm3 (4.20-5.60)
[2022-02-22 06:10] LABS: HEMATOCRIT 27.9 % (42.0-52.0); HEMOGLOBIN 9.3 g/dl (13.5-18.0); MEAN CORPUSCULAR HEMOGLOBIN 33 pg (27-31)
[2022-02-22 06:32] LABS: C-REACTIVE PROTEIN 3.36 mg/dL (0.00-0.50); CALCIUM 8.7 mg/dL (8.4-10.2); CREATININE, serum 1.08 mg/dL (0.72-1.25); MAGNESIUM 1.5 mg/dL (1.6-2.6); POTASSIUM 3.8 mmol/L (3.5-4.5)
--- NOTE | 2022-02-22 07:51 | NUR ---
Shift report received from night order selector RN. Pt. sitting up bedside drinking coffee. He has refused breakfast this morning because it may produce a bowel movement. Pt. reporting anal pain at 10/10. He reports feeling ready to go home. PRN pain medication given. He denies further needs at this time. Call light is within his reach
--- NOTE | 2022-02-22 14:40 | NUR ---
Admission QIM scores were reviewed by the team. Code of 5 chosen for eating was determined by team discussion to be the most usual performance for this patient during the assessment period. Code of 88 chosen for toilet hygiene was determined by team discussion to be the most usual performance for this patient during the assessment period. Code of 1 for sit to stand was determined by team discussion to be the most usual performance for this patient during the assessment period. Code of 1 for chair/bed to chair transfers was determined by team discussion to be the most usual performance for this patient during the assessment period.--Cara Remy, PD
--- NOTE | 2022-02-22 15:28 | NUR ---
Pt. sitting up at the side of his bed. He is not sure whether the Percocet has been helpful with pain control. He reports that his (anal) pain is constant. Discussed with pt. to try alternating periods of sitting up and lying down to reduce pressure. He was agreeable. Pt. reports dropping a hand weight on his 2nd toe left foot a few days ago. Bandaid noted with dried blood on the toe. Clean bandaid placed over the laceration to his toe. No active bleeding at this time. Pt. denies further needs at this time. Call light is within his reach
[2022-02-22 17:16] VITALS: BP 139/95; PULSE 72; TEMP 98.4
--- NOTE | 2022-02-22 20:34 | NUR ---
RECEIVE CHANGE OF SHIFT REPORT FROM DAY SHIFT RN.
[2022-02-23 05:45] VITALS: BP 160/73; PULSE 60; TEMP 98.1
--- NOTE | 2022-02-23 06:55 | NUR ---
CHANGE OF SHIFT REPORT GIVEN TO DAY SHIFT RNDELANEY.
--- NOTE | 2022-02-23 07:04 | NUR ---
Shift report received from shiftman RN. Pt. resting in right side lying position. Call light is within his reach
--- NOTE | 2022-02-23 09:49 | NUR ---
PT ASSISTED TO WHEELCHAIR THIS MORNING USING SLIDE BOARD. PT. SPILLED HIS URINAL IN HIS BED. HE REQUIRED 1 ASSIST WITH THE TRANSFER TO THE . HE REPORTS PAIN AT 5/10. PRN PAIN MEDICATION WAS GIVEN THIS MORNING. HE IS CURRENTLY WORKING IN OT TO PRACTICE TRANSFERS IN THE SHOWER
[2022-02-23 17:16] VITALS: BP 141/76; PULSE 69; TEMP 98.2
--- NOTE | 2022-02-23 19:35 | NUR ---
RECEIVED CHANGE OF SHIFT REPORT FROM DAY SHIFT RN, PATIENT SITTING AT SIDE OF BED DURING REPORT. DENIES ANY NEEDS, CALL LIGHT WITHIN REACH.
[2022-02-24 03:53] VITALS: BP 137/63; PULSE 75; TEMP 98
--- NOTE | 2022-02-24 07:13 | NUR ---
CHANGE OF SHIFT REPORT GIVEN TO DAY SHIFT RNABIOLA.
--- NOTE | 2022-02-24 08:58 | NUR ---
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
--- NOTE | 2022-02-24 15:00 | NUR ---
CAMILO met with the patient and his friend and presented and reviewed the IPR Team Conference Note. The team plans to re-evaluate the patient next Tuesday. No discharge date has been set yet. The patient is in agreement to the plan. SW to continue to follow.
[2022-02-24 16:56] VITALS: BP 139/54; PULSE 69; TEMP 98.2
--- NOTE | 2022-02-24 20:00 | NUR ---
PT RESTING IN BED. JUST HAD BM. NO NEEDS AT THIS TIME. PAIN CONTROLED BY PERCOCET EARLIER. CALL LIGHT IN REACH. PT MOVES IN BED INDEPENDENTLY.
--- NOTE | 2022-02-25 02:13 | NUR ---
PT SLEEPING AT THIS TIME. NO DISTRESS.
--- NOTE | 2022-02-25 03:35 | NUR ---
PT SITTING ON SIDE OF BED NAKED. ASKED FOR PAIN MED. SEE MAR FOR PERCOCET GIVEN FOR BILAT LEG PAIN. PT RELATES CAN'T SLEEP. CALL LIGHT IN REACH.
[2022-02-25 05:57] VITALS: BP 114/63; PULSE 57; TEMP 98.4
--- NOTE | 2022-02-25 06:13 | NUR ---
PT SLEEPING AT THIS TIME.
[2022-02-25 18:00] VITALS: BP 114/63; PULSE 102; TEMP 98.2
--- NOTE | 2022-02-25 18:02 | NUR ---
PT SITTING UP ON SIDE OF BED, HAS FINISHED EATING DINNER, DENIES NEEDS. CALL LIGHT WITHIN REACH. MICONAZOLE CREAM WAS APPLIED THIS MORNING, PT'S GROIN ET SCROTUM CONTINUES TO BE MILDLY RED. PT WAS UP TO THE TOILET WITH OCCUPATIONAL THERAPY THIS AFTERNOON, WAS ABLE TO HAVE A LARGE BM. PERCOCET GIVEN FOR PAIN.
--- NOTE | 2022-02-25 20:05 | NUR ---
PT SITTING TO SIDE OF BED. A&OX4. PT BASELINE PAIN TO LEGS ARE 5/10. SEE MAR FOR PAIN MED GIVEN EALIER BY LAST SHIFT. PT DENIES NEEDS AT THIS TIME. CALL LIGHT IN REACH. PT IN BARIATRIC BED. NO ALARM. PT NOT IMPULSIVE.
[2022-02-26 05:42] VITALS: BP 146/70; PULSE 76; TEMP 97.8
--- NOTE | 2022-02-26 06:11 | NUR ---
SEE MAR FOR PERCOCET GIVEN FOR BILAT LEG PAIN. PT REQUEST MICONAZOLE OINTMENT TO SCROTUM. LESS RED NOW. CALL LIGHT IN REACH.
--- NOTE | 2022-02-26 08:00 | NUR ---
Patient laying in bed, A&Ox4. VSS. Reports pain in anus, r/t drain. Indpendent with feeds, repositioning in bed and urinal. Call light within reach
--- NOTE | 2022-02-26 11:18 | NUR ---
CAMILO met with the patient to follow up before the weekend. The patient states that he is doing alright. He states that he is still having a lot of pain, but otherwise he is staying motivated and ready to get home. He is looking forward to his afternoon therapy session, where he will be able to the session outside in the courtyard. He had no concerns for CAMILO at this time.
--- NOTE | 2022-02-26 17:14 | NUR ---
Patient sitting up on the side of bed, family at the bedside. Patient A&Ox4. VSS. Reports pain in anus, pain medication given as requested. Patient independent with feeds and repositioning in bed. Call light within reach
[2022-02-26 17:21] VITALS: BP 125/77; PULSE 77; TEMP 97.6
--- NOTE | 2022-02-26 22:00 | NUR ---
PT given modified sitz bath using warm soapy water and squirt bottle, area around rectal opening gently rinsed with water, seton drain intact, pt tolerated well.
[2022-02-27 06:06] VITALS: BP 106/51; PULSE 75; TEMP 99
--- NOTE | 2022-02-27 06:28 | NUR ---
pain controlled with oral pain meds, pt reported sitz bath helped with rectal discomfort. voiding using urinal, did have 1 episode of incontinence while sleeping after HS pain meds. 4 units of SSI given @HS. on RA, VSS
--- NOTE | 2022-02-27 07:10 | NUR ---
Shift report received from geodetic engineer RN. Pt. awake and sitting up on side of bed. Pain medication was during prior shift - pt. denies pain at this time but reports having some anal discomfort. Discussed frequent position changes with pt. He v/u. Denies further needs at this time. Call light is within his reach
--- NOTE | 2022-02-27 15:36 | NUR ---
Pt. resting in bed, lying supine with HOB elevated approx 30 degrees. Pt. has his call light within his reach
[2022-02-27 17:05] VITALS: BP 133/68; PULSE 86; TEMP 98.2
[2022-02-28 05:53] VITALS: BP 129/71; PULSE 74; TEMP 97.9
--- NOTE | 2022-02-28 06:50 | NUR ---
Shift report received from shift engineer RN. Pt. sitting up on side of bed. Call light is within his reach. He denies further needs at this time
--- NOTE | 2022-02-28 09:36 | NUR ---
Pt. resting in bed. Now sitting up on bedside. He is reporting left hip pain and requesting PRN pain medication. Left 2nd toe lac is CDI, ROSITA. Call light is within his reach. He denies further needs at this time
--- NOTE | 2022-02-28 11:02 | NUR ---
Pt. c/o rectal pain/discomfort. PRN pain medication given < 2 hrs ago. Sitz bath given. Pt. reporting decreased anal pain. Discussed with pt. to make sure he is alternating between sitting and lying down. Pt. v/u. Call light is within his reach. He denies further needs at this time.
--- NOTE | 2022-02-28 15:05 | NUR ---
Pt. resting in bed. Family member at bedside visiting. He reports minimal pain at this time. Reports that sitz bath this AM was helpful with his pain. He denies further needs at this time. Call light is within his reach
[2022-02-28 17:16] VITALS: BP 128/75; PULSE 80; TEMP 98.2
--- NOTE | 2022-02-28 19:39 | NUR ---
RECEIVED CHANGE OF SHIFT REPORT FROM DAY SHIFT RN. CALL LIGHT WITHIN REACH. WANTING REFILL OF MICONAZOLE CREAM FOR C/O TESTICAL DISCOMFORT. DENIES ANY OTHER NEEDS AT THIS TIME.
--- NOTE | 2022-02-28 22:30 | NUR ---
PATIENT REQUESTING ANTIHISTAMINE TO BE SCHEDULED DAILY IN AM AROUND 0600.
[2022-03-01 05:46] VITALS: BP 161/77; PULSE 81; TEMP 97.6
--- NOTE | 2022-03-01 07:01 | NUR ---
CHANGE OF SHIFT REPORT GIVEN TO DAY SHIFT RNMARY ALICE.
--- NOTE | 2022-03-01 16:09 | NUR ---
roll on worker checke din with patient. Patient has no concerns or needs at this time.
[2022-03-01 17:24] LABS: COLLECTION METHOD CATHETER
[2022-03-01 17:29] LABS: MUCOUS Present (NOT PRESENT); PH 6 (5-8); SQUAMOUS EPITHELIAL None Seen /hpf (0-10); URINE APPEARANCE Clear (CLEAR/HAZY); URINE BACTERIA None Seen /hpf (NONE SEEN); URINE BILIRUBIN Negative (NEGATIVE); URINE BLOOD Negative (NEGATIVE); URINE COLOR Yellow (YELLOW); URINE GLUCOSE 3+ (NEGATIVE); URINE KETONE Trace (NEGATIVE); URINE LEUKOCYTE ESTERASE Negative (NEGATIVE); URINE NITRATE Negative (NEGATIVE); URINE PROTEIN(semi-quant) Negative (NEGATIVE); URINE RBC 0-2 /hpf (0-2); URINE UROBILINOGEN Negative (NEGATIVE)
[2022-03-01 17:52] VITALS: BP 139/72; PULSE 84; TEMP 97.7
--- NOTE | 2022-03-01 19:02 | NUR ---
RECEIVED CHANGE OF SHIFT REPORT FROM DAY SHIFT RN.
--- NOTE | 2022-03-01 19:18 | NUR ---
PATIENT RESTING IN BED, AT BEDSIDE. DENIES ANY NEEDS, CALL LIGHT WITHIN REACH.
[2022-03-02 06:05] VITALS: BP 117/57; PULSE 77; TEMP 98.7
[2022-03-02 06:54] LABS: BASO # 0.1 K/mm3 (0.0-0.2); BASO % 1.2 % (0.0-2.0); EOS # 0.4 K/mm3 (0.0-0.7); EOS % 8.7 % (0.0-4.0); GRAN # 1.4 K/mm3 (1.4-6.5); GRAN % 33.9 % (42.2-75.2); HEMOGLOBIN 10.1 g/dl (13.5-18.0); LYMPH # 1.7 K/mm3 (1.2-3.4); LYMPH % 39.4 % (20.0-51.0); MEAN CELL VOLUME 100 fl (80.0-100.0); MEAN CORPUSCULAR HEMOGLOBIN 32 pg (27-31); MEAN CORPUSCULAR HGB CONC 32 g/dl (33.0-37.0); MEAN PLATELET VOLUME 11.3 fl (7.4-10.4); MONO # 0.7 K/mm3 (0.1-0.6); MONO % 16.3 % (1.7-9.3); PLATELET COUNT 162 K/mm3 (130-400); RED BLOOD COUNT 3.13 M/mm3 (4.20-5.60)
[2022-03-02 07:01] LABS: HEMATOCRIT 31.3 % (42.0-52.0)
[2022-03-02 07:07] LABS: C-REACTIVE PROTEIN 2.53 mg/dL (0.00-0.50); CALCIUM 9.2 mg/dL (8.4-10.2); CREATININE, serum 0.96 mg/dL (0.72-1.25); MAGNESIUM 1.3 mg/dL (1.6-2.6)
--- NOTE | 2022-03-02 07:25 | NUR ---
CHANGE OF SHIFT REPORT GIVEN TO DAY SHIFT RNEDILIA.
--- NOTE | 2022-03-02 09:10 | NUR ---
PT SITTING UP IN WHEELCHAIR READY FOR THERAPY. PT HAS LOTS OF COMPLAINTS ABOUT MEDICATIONS. "I DO NOT WANT TO TAKE ALL OF THOSE. IM GOING TO HAVE A COME TO [place] MEETING WITH MY DR WHEN I GET OUT OF HERE AND WE ARE GOING TO GET ME OFF OF HALF OF THESE." PT STATES THAT HE IS NOT HAVING ANY PAIN AT THIS TIME. "I AM JUST READY TO GET THIS THERAPY OVERWITH." THERAPY IN ROOM TO TAKE PT OFF FLOOR.
--- NOTE | 2022-03-02 10:13 | NUR ---
PT OFF FLOOR FOR GROUP THERAPY
--- NOTE | 2022-03-02 11:23 | NUR ---
PT RETURNED TO FLOOR FROM THERAPY.
[2022-03-02 17:59] VITALS: BP 149/72; PULSE 86; TEMP 97.5
--- NOTE | 2022-03-02 18:34 | NUR ---
PT LAYING SUPINE IN BED ON ROOM AIR. PT WAS ASSITED ON AND OFF BED SIDE TOLIET VIA SLIDE BOARD. PT WAS ABLE TO HAVE LARGE BM AND VOID. PT WAS CLEANED UP AND MOVED BACK INTO BED. PT STATES "I WANT A SITZ BATH BUT I AM GOING TO WAIT UNTIL LATER TONIGHT TO GET ONE. AFTER ALL THAT MOVING I NEED A LITTLE BIT TO REST." PT STATES NO NEEDS AT THIS TIME. CALL LIGHT IS WITHIN REACH.
--- NOTE | 2022-03-03 00:03 | NUR ---
Pt pleasant this evening and has no complaints of pain. States that he had a large BM and ever since he has had relief from his fistula, declined his evening sitz bath. Patient tolerated insulin injections well however complained that his HS snack seems to be causing his glucose to "skyrocket". Pt expresses wanting to try a different HS snack. Pt has no other complaints throughout the shift so far. Currently resting quietly in bed, call light within reach.
[2022-03-03 05:47] VITALS: BP 140/63; PULSE 79; TEMP 97.7
--- NOTE | 2022-03-03 09:15 | NUR ---
PT SITTING UP ON SIDE OF BED FINISHING BREAKFAST. PT STATES THAT HE NEEDS TO USE BEDPAN. PT WAS PUT ON AND WAS ABLE TO HAVE A MED FORMED BM. PT WAS CLEANED AND REMOVED FROM BEDPAN. PT STATES THAT HIS PAIN IS DOING "OK" RIGHT NOW BUT HE WOULD LIKE TO GO AHEAD AND GET A PAIN PILL JUST TO "STAY ON TOP OF THE PAIN." PT ALSO REQUESTED ASSISTANCE WITH GETTING SHORTS, SOCKS AND SHOES ON. MED ASSISTANCE GIVEN TO PT. PT STATES NO OTHER NEEDS AT THIS TIME. CALL LIGHT IS WITHIN REACH.
--- NOTE | 2022-03-03 12:55 | NUR ---
Follow-up visit; Patient thanked for looking in on him again today. Jamin appears to be in pretty good spirits and glad to have a visit. wished him well and God's blessings when a Physical Therapist arrived.
--- NOTE | 2022-03-03 15:04 | NUR ---
Critical Care Specialist contacted patient's , Carlyn and scheduled family conference for tomorrow at 1000. SW provided date and time to Cara, Director.
--- NOTE | 2022-03-03 15:05 | NUR ---
CAMILO provided the patient the team conference notes from today. Patient states that he has had a good day today with therapy and is feeling motivated. Patient is understanding that at the time of discharge he will need HH. Patient states that he had [facility] before and would like to go with them again. Confirmed with the patient that he has a wheelchair at home and a ramp to get into his home. Informed the patient of recommendation of going home with a slide board and a commode. Patient states that his shower chair is one that transforms into a commode and that it has a platform and handles.
[2022-03-03 16:53] VITALS: BP 141/94; PULSE 101; TEMP 98.3
--- NOTE | 2022-03-03 19:26 | NUR ---
PT LAYING SUPIINE IN BED WITH AT BEDSIDE. PT STATES NO NEEDS OR PAIN AT THIS TIME.
--- NOTE | 2022-03-03 20:30 | NUR ---
PM ASSESSMENT COMPLETE. PT SITTING UP AT EDGE OF BED, REQUESTING PAIN MEDICATIONS WITH PM MEDS. WILL ADMINISTER PER PRN ORDERS. PT STATES PAIN IN RECTUM/PERIANAL AREA IS BETTER THAN HAS BEEN, BUT STILL PRESENT. VISUALIZED BLUE SETON DRAIN FROM RECTUM. NO DRAINAGE, AREA IS CLEAN. PT ASSISTED TO USE BEDPAN, HOWEVER JUST PASSED GAS. DISCUSSED PLAN FOR NIGHT AND FOLLOWING DAY. PT SEEMS MOTIVATED TO BUILD STRENGTH TO BE ABLE TO GO HOME SOON. REPORTS NO FURTHER NEEDS THIS TIME, WILL CONTINUE TO MONITOR.
[2022-03-04 05:33] VITALS: BP 135/71; PULSE 68; TEMP 97.9
--- NOTE | 2022-03-04 06:55 | NUR ---
shift report received from SUKHWINDER [place]
--- NOTE | 2022-03-04 09:02 | NUR ---
physical therapy working with patient, up in WC and moving down álvarez independently in WC
--- NOTE | 2022-03-04 10:01 | NUR ---
returned from therapy per WC, full assessment completed, see interventions for further info, family meeting with care team ready to start
--- NOTE | 2022-03-04 10:25 | NUR ---
to therapy room for group therapy
--- NOTE | 2022-03-04 11:38 | NUR ---
returned from group therapy and returned to bed
--- NOTE | 2022-03-04 12:10 | NUR ---
sitting up on side of bed eating lunch, c/o pain to rectum and medicated with percocet 1 tab
--- NOTE | 2022-03-04 13:06 | NUR ---
occupational therapy in to work with patient
--- NOTE | 2022-03-04 13:25 | NUR ---
SW attended family meeting today. Also in attendance is the patients Carlyn, PT,OT MD and IPR director. The team talked abou tthe patients progress and a possible discharge date of 03/12. Patient and updated that the team will reeval the patient next week to determine if he needs longer. Patient and are in agreement with the plan. Carlyn expressed concerns of the patients blood sugars. Medical update and questions answered by the MD. Educated the patient and Carlyn that the team recommends that he get a slide board. IPR directors asks Carlyn to take pictures of their current set up at home along with equipment they may have.
--- NOTE | 2022-03-04 15:03 | NUR ---
sitting up on side of bed visiting with a friend
--- NOTE | 2022-03-04 16:04 | NUR ---
resting in bed, denies needs or c/os
--- NOTE | 2022-03-04 17:10 | NUR ---
had supper at tolerated well
[2022-03-04 18:00] VITALS: BP 116/58; PULSE 88; TEMP 97.8
--- NOTE | 2022-03-04 21:00 | NUR ---
PT RESTING IN BARIATRIC BED. MOVES AROUND INDEPENDENTLY TO SIDE OF BED AND BACK. HANDS GRASPS WEAK. LEGS STILL WEAK. PT REPORTS AMB WITH PT TODAY. FELLS HE IS GETTING STRONGER. CALL LIGHT IN REACH. BED ALARM SET.
[2022-03-05 05:33] VITALS: BP 130/68; PULSE 70; TEMP 98.1
--- NOTE | 2022-03-05 05:55 | NUR ---
PT HAS SLEPT WELL THIS SHIFT. NO DISTRESS.
--- NOTE | 2022-03-05 08:10 | NUR ---
Shift report received from night coordinator RN. Pt. resting in right side lying position. Call light is within his reach
--- NOTE | 2022-03-05 14:00 | NUR ---
Pt. is up in his wheelchair. Plans to take a shower today with the assistance of OT. Reports minimal pain level right now; PRN pain medication was given approx 2 hours ago
[2022-03-05 17:35] VITALS: BP 128/59; PULSE 91; TEMP 98.9
[2022-03-06 05:42] VITALS: BP 120/62; PULSE 72; TEMP 98.3
--- NOTE | 2022-03-06 07:05 | NUR ---
Shift report received from wash crew person RN. Pt. awake and lying supine in bed. Reports that he "just got a pain pill". Denies further needs at this time. Call light is within his reach
--- NOTE | 2022-03-06 10:00 | NUR ---
Pt. assisted with upper/lower body dressing. Pt. assisted to wc so he can self-propel to group therapy. He reports minimal pain at this time.
--- NOTE | 2022-03-06 13:23 | NUR ---
Rectal wash/sitz completed at pt's request. He feels this helps with pain relief between doses of PRN pain medication. Small amt of light brown drainage noted around Seton drain.
--- NOTE | 2022-03-06 17:15 | NUR ---
Pt. sitting up at bedside, eating dinner and visiting with his . He reports feeling anal soreness. PRN pain medication was given at his request. He denies further needs at this time. Call light is within his reach
[2022-03-06 17:41] VITALS: BP 111/64; PULSE 91; TEMP 98.2
[2022-03-07 06:02] VITALS: BP 110/68; PULSE 77; TEMP 98.2
--- NOTE | 2022-03-07 06:30 | NUR ---
percocet x2 this shift, BM reported last evening, was here and helped pt with bedpan. had another smear with staff assist. reported not sleeping well tonight, despite having melatonin last noc.
--- NOTE | 2022-03-07 08:00 | NUR ---
Patient laying in bed, A&Ox4. VSS. Denies pain and discomfort. Independent with repositioning in bed and feeds. Call light within reach.
[2022-03-07 17:44] VITALS: BP 119/61; PULSE 100; TEMP 98.5
--- NOTE | 2022-03-07 18:06 | NUR ---
Patient laying in bed, at the bedside. at the bedside, bought a walker and put together in the room. Nidhi bottle used after each BM, patient tolerating well. Pain medication given when requested. Patient independent with repositioning in the bed and with feeds. Call light within reach
[2022-03-08 06:06] VITALS: BP 112/54; PULSE 78; TEMP 98.2
--- NOTE | 2022-03-08 06:52 | NUR ---
Shift report received from manager shift RN. Pt. expressing that he does not want breakfast because he "know my colon is going to go crazy if I eat". Pt. denies pain or discomfort at this time. Call light is within her reach
--- NOTE | 2022-03-08 07:12 | NUR ---
PRN Bentyl given with morning medications
--- NOTE | 2022-03-08 14:54 | NUR ---
Message returned to [facility] at [facility].
--- NOTE | 2022-03-08 15:51 | NUR ---
Pt was laying supine in bed, now sitting up at bedside. PRN pain medication given at his request. Discussed doing sitz/rectal wash - pt would like to try to go to toilet to have a bowel movement first. Pt. expressing nervousness about having a bowel movement because of the pain it causes. Discussed that sitz could be done to help with pain relief. Pt. feels that he often has to strain to have a bowel movement but feels afraid to take Miralax (Pt. refused dose this a.m.) because it causes increased frequency of stools. Pt denying further needs at this time. Call light is within his reach
--- NOTE | 2022-03-08 16:30 | NUR ---
Supervision provided while pt. used slide board to self transfer to wheelchair then self transfer to toilet in bathroom
--- NOTE | 2022-03-08 18:07 | NUR ---
Sitz/rectal wash completed
[2022-03-08 18:11] VITALS: BP 112/71; PULSE 78; TEMP 98.2
--- NOTE | 2022-03-08 21:00 | NUR ---
Patient is resting in bed, alert and orientex x4, VSS. Moves in bed independently. Assessment completed, medications provided. No other needs at this time. Call light within reach.
[2022-03-09 05:44] VITALS: BP 120/58; PULSE 80; TEMP 97.8
--- NOTE | 2022-03-09 05:50 | NUR ---
Patient complained of pain in his great toe on the right foot. He has been asking for pain medication as allowed. Report will be given to day RN.
--- NOTE | 2022-03-09 08:56 | NUR ---
PATIENT ALERT AND ORIENTED X3. NO NEW CONCERNS. SITTING UP ON SIDE OF BED EATING BREAKFAST.
--- NOTE | 2022-03-09 14:54 | NUR ---
SW checked in with patient. Patient verbalized feeling good with the progress that he is making and anxious to get home. Patient does verbalize his willingness to stay if that is what needs to be done. Patient has no concerns at this time.
[2022-03-09 18:00] VITALS: BP 126/72; PULSE 111; TEMP 98.5
--- NOTE | 2022-03-09 21:00 | NUR ---
Patient is resting in bed, alert and oriented x 4, VSS. Asks for his pain medications to be provided at 2200. Assessment completed, meds provided. No other needs at this time. Call light within reach.
--- NOTE | 2022-03-09 21:45 | NUR ---
Hygiene provided in perianal area. PRN Pain meds provided.
[2022-03-10 05:43] VITALS: BP 106/54; PULSE 77; TEMP 97.9
--- NOTE | 2022-03-10 06:04 | NUR ---
Patient was able to sleep most of the night after his required pain medication. No other issues. Report will be given to day RN.
--- NOTE | 2022-03-10 07:12 | NUR ---
Shift report received from mine shifter RN. Pt awake and sitting up at bedside. He denies pain or discomfort at this time. Call light is within his reach
--- NOTE | 2022-03-10 15:28 | NUR ---
Pt. resting supine in bed. Rates pain at 2/10 and denies the need for pain medication at this time. Sitz/rectal wash declined at this time. He denies further needs at this time. Call light is within his reach
[2022-03-10 17:32] VITALS: BP 141/83; PULSE 96; TEMP 99
--- NOTE | 2022-03-10 18:25 | NUR ---
Sitz/rectal wash completed
[2022-03-11 06:37] VITALS: BP 115/58; PULSE 76; TEMP 97.3
--- NOTE | 2022-03-11 08:38 | NUR ---
Sitz/rectal wash completed. Seton drain in place. No pus, redness noted around drain insertion sites
--- NOTE | 2022-03-11 15:32 | NUR ---
Sitz/rectal wash completed
--- NOTE | 2022-03-11 15:35 | NUR ---
SW provided and reviewed the team conference notes with the patient. Patient verbalized that he was happy with the progress that he is making and excited to stay for another week to continue therapy. Patient verbalized his awareness that he is not quite well enough to be at home safely yet. No other needs at this time.
[2022-03-11 17:17] VITALS: BP 141/77; PULSE 91; TEMP 98.7
--- NOTE | 2022-03-11 20:56 | NUR ---
PT RESTING IN BARIATRIC BED. DENIES NEEDS AT THIS TIME. NO DISTRESS. PLEASANT AND COOPERATIVE. ACCUCHECK 214. TREATED WITH SSI. CALL LIGHT IN REACH.
[2022-03-12 05:40] VITALS: BP 104/54; PULSE 85; TEMP 97.9
--- NOTE | 2022-03-12 05:56 | NUR ---
PT AWAKE. SEE MAR FOR PERCOCET FOR GENERALIZED PAIN. NO OTHER NEEDS AT THIS TIME.
--- NOTE | 2022-03-12 06:36 | NUR ---
shift report received from SUKHWINDER Arevalo
--- NOTE | 2022-03-12 07:40 | NUR ---
sitting up on side of bed and has had breakfast, requesting to get up to bathroom to have bowel movement, with assistance of EXPERIMENTAL PSYCHOLOGIST and slide board moved to WC and then into bathroom and onto commode, he is able to do most of this independently, full assessment completed, see interventions for further info,
--- NOTE | 2022-03-12 08:10 | NUR ---
assisted out of bathroom and remains up in WC
--- NOTE | 2022-03-12 09:41 | NUR ---
out of room and working with physical therapy
--- NOTE | 2022-03-12 11:45 | NUR ---
C/O pain to recum 04/02, medicated with percocet 5mg 1 tab
--- NOTE | 2022-03-12 12:40 | NUR ---
appears to be sleeping, in bed with eyes closed, resp quiet and easy
--- NOTE | 2022-03-12 13:18 | NUR ---
physical therapy in to work with patient
--- NOTE | 2022-03-12 14:15 | NUR ---
occupational therapist was in and helped him with a shower, I could hear them talking before the shower and he was obviously upset about something, he did take the shower and then back to his room, Madhuri, web developer programmer also went in and talked with him, this nurse is unsure of what he is upset about but therapist and director visited with him and he is now resting in bed
--- NOTE | 2022-03-12 15:10 | NUR ---
entered room with JENELLE and he is awake and watching TV, cheerful and siling, offered him a sitz bath as he had said earlier he wanted one at 3PM, he states he had a nice shower earlier and really was able to clean himself and feels really good right now, instructed him to call if he changed his mind and we would help later, verbalizes understanding
--- NOTE | 2022-03-12 16:49 | NUR ---
IPR director notifed me that the patient's insurance will only cover until Tuesday the . Patient is established with [facility]
--- NOTE | 2022-03-12 17:25 | NUR ---
sitting up on side of bed for supper, c/o pain to rectum and medicated with percocet 7.5mg 1 tab
[2022-03-12 17:45] VITALS: BP 123/68; PULSE 84; TEMP 97.7
--- NOTE | 2022-03-12 18:19 | NUR ---
shift report given to SUKHWINDER Lyman
--- NOTE | 2022-03-12 19:23 | NUR ---
RECEIVED CHANGE OF SHIFT REPORT FROM DAY SHIFT RN. PATIENT RESTING IN BED. CALL LIGHT WITHIN REACH. REQUESTING MELATONIN AND SLEEPING AROUND 2200 FOR SLEEP, ENCOURAGED PATIENT TO CALL CLOSER TO TIME FOR PAIN MEDS AND SLEEPING PILL.
--- NOTE | 2022-03-13 03:19 | NUR ---
SLEEPING, DOES NOT WAKE WHEN ROOM ENTERED BY NURSING ON ROUNDS. BREATHING NONLABORED AND EVEN. CALL LIGHT WITHIN REACH.
[2022-03-13 05:47] VITALS: BP 111/64; PULSE 74; TEMP 97.8
--- NOTE | 2022-03-13 06:37 | NUR ---
REQUESTED AND GIVEN PAIN MED, SEE MAR. PATIENT DENIES ANY OTHER NEEDS OR COMPLAINTS AT THIS TIME. CALL LIGHT WITHIN REACH.
--- NOTE | 2022-03-13 07:17 | NUR ---
CHANGE OF SHIFT REPORT GIVEN TO DAY SHIFT IZZY PRETTY.
--- NOTE | 2022-03-13 09:48 | NUR ---
PT ALERT AND ORIENTED IN ROOM. ASSESSMENT AND MEDICATION PASS COMPLETED TO BEST OF ABILITY. PT ABLE TO SIT UP AT BEDSIDE TO EAT BREAKFAST. PT ABLE TO EXPRESS NEEDS. REFUSING GROUP THERAPY TODAY. PT REFUSING MIRALAX, STATES JUST HAD BM PRIOR TO ENTRY FOR ASSESSMENT. PT HAS SCRAPES NOTED GENERALIZED OVER BODY, BILATERAL LEGS, AND ABDOMEN, NO SIGNS OF INFECTION NOTED AT THIS TIME. NO FURTHER NEEDS AT THIS TIME.
--- NOTE | 2022-03-13 12:48 | NUR ---
SITZ BATH PERFORMED TO BEST OF ABILITY, NO EXUDATE NOTED FROM DRAIN. [facility] PROVIDED, BARRIER CREAM APPLIED FOR MOISTURE CONTROL.
--- NOTE | 2022-03-13 16:14 | NUR ---
NOT FORMALLY TRAINED TO FILL OUT QUALITY MEASURE CODES.
--- NOTE | 2022-03-13 16:54 | NUR ---
PT CONTINUING ON PLAN OF CARE, HAD VISITORS THIS SHIFT. NO SIGNIFICANT CHANGES NOTED IN PT STATUS THIS SHIFT. PT ABLE TO CONVERSE FREELY AND EXPRESS NEEDS.CALL LIGHT WITHIN REACH.
[2022-03-13 18:00] VITALS: BP 114/64; PULSE 88; TEMP 98.5
--- NOTE | 2022-03-13 18:42 | NUR ---
RECEIVED CHANGE OF SHIFT REPORT FROM DAY SHIFT RN.
[2022-03-13 21:49] VITALS: BP 126/72
--- NOTE | 2022-03-13 22:45 | NUR ---
PATIENT AGREED TO SITZ BATH REPORTING HAS HAD AT LEAST 3 STOOLS "WHENEVER I HAVE MORE THAN 2 STOOLS I HAVE MORE PROBLEMS WITH PAIN" INDICATING RECTAL DISCOMFORT. TOLERATED SITZ TREATMENT WHILE LAYING ON LEFT SIDE IN BED, OBSERVED X1 SMALL WHITISH/YELLOWISH DEBRIS WITH TREATMENT. NO ACTIVE DRAINAGE/PURULENT DRAINAGE OBSERVED FROM RECTAL AREA.
--- NOTE | 2022-03-14 01:30 | NUR ---
PATIENT SLEEPS, DOES NOT WAKE WHEN NURSING ENTER ROOM ON ROUNDS. BREATHING NONLABORED AND EVEN. CALL LIGHT WITHIN REACH. NO BED ALARM AVAILABLE ON BARIBED.
[2022-03-14 05:47] VITALS: BP 134/66; PULSE 76; TEMP 97.2
--- NOTE | 2022-03-14 07:17 | NUR ---
CHANGE OF SHIFT REPORT GIVEN TO DAY SHIFT RNNAI.
--- NOTE | 2022-03-14 18:38 | NUR ---
RECEIVED CHANGE OF SHIFT REPORT FROM DAY SHIFT RN.
[2022-03-14 19:02] VITALS: BP 129/77; PULSE 84; TEMP 97.8
--- NOTE | 2022-03-14 19:45 | NUR ---
EXPRESSED CONCERNS REGARDING PATIENT TAKING INSULIN REGIME DIFFERS FROM INSULIN HE TAKES AT HOME AND WANTED TO MAKE SURE PATIENT WILL START BACK ON MEDS HE WAS TAKING PREVIOUSLY AT HOME, IF IT'S SAFE.
[2022-03-15 06:06] VITALS: BP 113/60; PULSE 73; TEMP 97.9
--- NOTE | 2022-03-15 06:55 | NUR ---
PT. RESTING IN SUPINE IN BED. HOB SLIGHTLY ELEVATED. HE DENIES PAIN OR DISCOMFORT. DENIES FURTHER NEEDS. CALL LIGHT IS WITHIN HIS REACH
--- NOTE | 2022-03-15 07:07 | NUR ---
CHANGE OF SHIFT REPORT GIVEN TO DAY SHIFT RNDELANEY.
--- NOTE | 2022-03-15 12:57 | NUR ---
Pt. sitting up on side of bed. Reports feeling tired after walking with PT and OT this morning. He would like a sitz after his afternoon PT session today. Denies further needs at this time. Call light is within his reach
--- NOTE | 2022-03-15 15:45 | NUR ---
[employer] contacted [facility] with [facility] and faxed clinical updates. CAMILO advised discharge is tomorrow. CAMILO met with patient who is excited to get home as soon as possible. CAMILO was notified that patient is in need of a 30 inch slide board. CAMILO contacted [facility] and they have one in stock. CAMILO faxed referral and will follow up with order tomorrow morning. CAMILO contacted patient's Carlyn to provide an update. Carlyn advised they will scrap picker slide board tomorrow. Discharge Plan: Home tomorrow with [facility]
--- NOTE | 2022-03-15 16:07 | NUR ---
Sitz/rectal wash completed. Seton drain in place. Small amt of wolff pus around drain site. No redness/swelling/odor
[2022-03-15 17:33] VITALS: BP 122/69; PULSE 81; TEMP 98.5
[2022-03-16 05:45] VITALS: BP 134/70; PULSE 81; TEMP 97.9
[2022-03-16] MEDS ORDERED: FLOMAX 0.40.4 MG/CAP PO (08:55)
[2022-03-16] MEDS ORDERED: MELATIN 3 MG-11 TAB PO (09:00)
--- NOTE | 2022-03-16 09:00 | NUR ---
Patient sitting up on the edge of bed eating breakfast. A&Ox4. VSS. Denies pain and discomfort. DC home today. No further needs expressed. Call light within reach
[2022-03-16] MEDS ORDERED: PERCOCET 325 MG1 TA3 PO (09:01)
--- NOTE | 2022-03-16 11:19 | NUR ---
[employer] Supervisor faxed order for slide board to [facility]. SW contacted [facility] to confirm it was received and ready for fruit picker today. SW met with patient to advise that slide board was ready for fruit picker. CAMILO contacted [facility] with [facility] and faxed discharge orders and summary. Discharge Plan: Home with [facility]
--- NOTE | 2022-03-16 11:25 | NUR ---
Discharge paperword reviewed with the patient and . OT walking with the patient and nurse to assess the patient getting into the vehicle. No further needs expressed.
--- NOTE | 2022-03-16 13:24 | NUR ---
Discharge QIM scores were reviewed by the team. Code of 5 chosen for toileting transfers was determined by team discussion to be the most usual performance for this patient during the assessment period. Code of 5 for chair/bed to chair transfers was determined by team discussion to be the most usual performance for this patient during the assessment period. Code of 5 for car transfer was determined by team discussion to be the most usual performance before interventions for this patient during the assessment period.--Cara Remy, PD
== END 2022-03-16 11:25 | disposition home health service (06) | DRG 74 ==
PROVIDERS: Internal Medicine; Physician Assistant; ADMIT Physical Medicine & Rehabilitation Sports Medicine
DX: G61.81 Chronic inflammatory demyelinating polyneuritis (principal); N39.0 Urinary tract infection, site not specified; K61.0 Anal abscess; N17.9 Acute kidney failure, unspecified; Z68.41 Body mass index [BMI] 40.0-44.9, adult; R26.89 Other abnormalities of gait and mobility; B95.2 Enterococcus as the cause of diseases classified elsewhere; E11.42 Type 2 diabetes mellitus with diabetic polyneuropathy; R33.9 Retention of urine, unspecified; R39.15 Urgency of urination; B35.6 Tinea cruris; R29.6 Repeated falls; R53.81 Other malaise; I10 Essential (primary) hypertension; E78.5 Hyperlipidemia, unspecified; K21.9 Gastro-esophageal reflux disease without esophagitis; K59.00 Constipation, unspecified; Z73.6 Limitation of activities due to disability; Z88.8 Allergy status to other drugs, medicaments and biological substances; Z79.4 Long term (current) use of insulin; Z85.038 Personal history of other malignant neoplasm of large intestine; Z79.84 Long term (current) use of oral hypoglycemic drugs; Z90.49 Acquired absence of other specified parts of digestive tract; Z79.899 Other long term (current) drug therapy; Z79.82 Long term (current) use of aspirin; Z79.2 Long term (current) use of antibiotics; Z79.891 Long term (current) use of opiate analgesic; E83.42 Hypomagnesemia; E66.01 Morbid (severe) obesity due to excess calories; Z89.411 Acquired absence of right great toe
CPT/HCPCS: 99222; 99231-AI; 99232-AI; J1644; J1650; J1815

== ENCOUNTER 2022-08-02 02:40 | Inpatient (IN) | payer OTHER ==
[~2022-08-02] VITALS: Ht 188 cm; Wt 174.9 kg
[~2022-08-02 02:40] MED LIST changes: +MELATIN 3 MG-11 TAB PO; +PERCOCET 325 MG1 TA3 PO
[2022-08-02 03:26] LABS: BASO % 0.3 % (0.0-2.0); EOS % 0.2 % (0.0-4.0); GRAN # 8.3 K/mm3 (1.4-6.5); LYMPH # 0.3 K/mm3 (1.2-3.4); MEAN CELL VOLUME 108 fl (80.0-100.0); MEAN CORPUSCULAR HGB CONC 32 g/dl (33.0-37.0); MEAN PLATELET VOLUME 9.7 fl (7.4-10.4); MONO # 0.8 K/mm3 (0.1-0.6); MONO % 8.1 % (1.7-9.3); PLATELET COUNT 88 K/mm3 (130-400); RED BLOOD COUNT 2.76 M/mm3 (4.20-5.60); REDCELL DISTRIBUTION WIDTH-CV 13.2 % (11.5-14.5)
[2022-08-02 03:39] LABS: ALBUMIN 3.3 gm/dL (3.4-4.8); BILIRUBIN,TOTAL 3.5 mg/dL (0.2-1.2); CALCIUM 8.9 mg/dL (8.4-10.2); CREATININE, serum 1.46 mg/dL (0.72-1.25); TOTAL PROTEIN 7.1 gm/dL (6.2-8.1)
[2022-08-02 03:41] LABS: HEMATOCRIT 29.7 % (42.0-52.0); HEMOGLOBIN 9.4 g/dl (13.5-18.0); MEAN CORPUSCULAR HEMOGLOBIN 34 pg (27-31)
[2022-08-02 03:43] LABS: POTASSIUM 6.1 mmol/L (3.5-4.5)
[2022-08-02 03:45] LABS: TROPONIN-I 0.015 ng/mL (0.00-0.033)
[2022-08-02 05:01] LABS: ACETAMINOPHEN < 1.0 ug/mL (10-30)
[2022-08-02 05:05] LABS: BILIRUBIN,DIRECT 2.5 mg/dL (0.0-0.5)
[2022-08-02] MEDS ORDERED: CYMBALTA 30MG30 MG (06:44)
[2022-08-02] MEDS ORDERED: TRULICITY1.5 MG/0.5 (06:46)
[2022-08-02] MEDS ORDERED: LYRICA 100MG C100 M1 (06:47)
[2022-08-02 11:18] VITALS: BP 142/92; PULSE 92; TEMP 97.6
[2022-08-02 15:20] VITALS: BP 169/77; PULSE 102; TEMP 98.2
--- NOTE | 2022-08-02 16:17 | NUR ---
SW met with pt and present in room to complete intake. Pt DPOA-HC is his , Carlyn @ [phone]. Pt lives at home in and uses a FWW, cane, and wheel chair for mobility and Glucmeter. PCP is Dr. Valadez, but will getting new one soon and gets medications [facility] and [facility]. Pt reports using [facility] in the past and they like them. SW await for further recommendations and follow up as needed. DC: Home.
[2022-08-02 18:26] LABS: CALCIUM 8.7 mg/dL (8.4-10.2); CREATININE, serum 1.4 mg/dL (0.72-1.25); POTASSIUM 5.7 mmol/L (3.5-4.5)
[2022-08-02 19:34] VITALS: BP 173/85; PULSE 106; TEMP 97.9
[2022-08-03] VITALS (10 sets, daily range): BP systolic 143–180; BP diastolic 63–108; PULSE 83–120; TEMP 97.7–98.8; O2SAT 94
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
--- NOTE | 2022-08-03 01:26 | NUR ---
PATIENT RESTING IN BED WATCHING TV. PATIENT DENIES PAIN, NEEDS OR CONCERNS. PATIENT STATES NO DISCOMFORTS TO WITHDRAWAL CIWA. PATIENT HAS CALL LIGHT WITHIN REACH. PATIENT ENCOURAGED TO CALL WITH ANY NEEDS OR CONCERNS.
[2022-08-03 07:02] LABS: BASO % 0.2 % (0.0-2.0); EOS % 0.2 % (0.0-4.0); GRAN # 3.5 K/mm3 (1.4-6.5); GRAN % 84.3 % (42.2-75.2); HEMATOCRIT 25.8 % (42.0-52.0); HEMOGLOBIN 8.6 g/dl (13.5-18.0); LYMPH # 0.3 K/mm3 (1.2-3.4); LYMPH % 7.4 % (20.0-51.0); MEAN CELL VOLUME 102 fl (80.0-100.0); MEAN CORPUSCULAR HEMOGLOBIN 34 pg (27-31); MEAN CORPUSCULAR HGB CONC 33 g/dl (33.0-37.0); MEAN PLATELET VOLUME 10.3 fl (7.4-10.4); MONO # 0.3 K/mm3 (0.1-0.6); MONO % 6.9 % (1.7-9.3); PLATELET COUNT 87 K/mm3 (130-400); RED BLOOD COUNT 2.52 M/mm3 (4.20-5.60); REDCELL DISTRIBUTION WIDTH-CV 13.2 % (11.5-14.5)
[2022-08-03 07:06] LABS: CALCIUM 9.2 mg/dL (8.4-10.2); CREATININE, serum 1.33 mg/dL (0.72-1.25); POTASSIUM 5.3 mmol/L (3.5-4.5)
--- NOTE | 2022-08-03 08:00 | NUR ---
Pt sitting up in bed eating breakfast. Morning medications administered per eMAR. Shift assessment completed. Telemetry on; tachycardic. INT in R AC intact; no edema or redness. No further requests at this time. Call light within reach. Mother at bedside.
--- NOTE | 2022-08-03 14:40 | NUR ---
Puller Through met with patient and his , Carlyn (ph#[phone]) to discuss discharge planning. Patient lives in [place] and sees Dr. Eli Valadez for primary care. Patient obtains medications from either [facility] or [facility] in . Patient has a front wheeled walker and upright walker for ambulation. Patient is independent with ADLS but does need help with his shoes. Patient has DPOA-HC in EMR which designates his , Carlyn and daughter, Citlaly. Patient plans to return home at time of discharge. Patient has no current outpatient PT or Home Health services at this time. Discharge Plan: Home
--- NOTE | 2022-08-03 18:50 | NUR ---
Patient has been stating having some allucinations. BP has been high, medication administered per orders. Blood sugar has been high. Aware of need to have just the recommended carbohydrates per meal. Report given to night RN.
[2022-08-04] VITALS (903 sets, daily range): BP systolic 124–153; BP diastolic 72–97; PULSE 69–88; TEMP 98.1–99.9; O2SAT 78–100
[2022-08-04 00:58] LABS: ARTERIAL BLD GAS TCO2 CT 23.1; ARTERIAL BLOOD GAS BASE EXCESS -2.1 (-2-2); ARTERIAL BLOOD GAS PCO2 36.1 mmHg (35-45); ARTERIAL BLOOD GAS PO2 66.8 mmHg (80-100)
[2022-08-04 06:12] LABS: MEAN CELL VOLUME 101 fl (80.0-100.0); MEAN CORPUSCULAR HGB CONC 33 g/dl (33.0-37.0); MEAN PLATELET VOLUME 10.3 fl (7.4-10.4); PLATELET COUNT 112 K/mm3 (130-400); RED BLOOD COUNT 2.43 M/mm3 (4.20-5.60); REDCELL DISTRIBUTION WIDTH-CV 13.3 % (11.5-14.5)
[2022-08-04 06:13] LABS: HEMATOCRIT 24.6 % (42.0-52.0); HEMOGLOBIN 8.2 g/dl (13.5-18.0); MEAN CORPUSCULAR HEMOGLOBIN 34 pg (27-31)
--- NOTE | 2022-08-04 06:22 | NUR ---
PT HAS PO PROTONIX DUE AT 0700. PT IS CURRENTLY UNABLE TO TAKE PO MEDICATIONS. CALLED PHARMACY TO CHANGE ROUTE TO IV. PHARMACY WOULD LIKE A VERBAL ORDER FROM A PROVIDER BEFORE ROUTE IS CHANGED. WILL PASS ON IN MORNING REPORT TO CONFIRM WITH PROVIDER.
[2022-08-04 06:26] LABS: PROTHROMBIN TIME 11.1 SECONDS (9.7-12.8)
[2022-08-04 06:32] LABS: ALBUMIN 3.1 gm/dL (3.4-4.8); BILIRUBIN,TOTAL 1.6 mg/dL (0.2-1.2); CALCIUM 9.1 mg/dL (8.4-10.2); CREATININE, serum 1.47 mg/dL (0.72-1.25); POTASSIUM 4.7 mmol/L (3.5-4.5); TOTAL PROTEIN 6.5 gm/dL (6.2-8.1)
--- NOTE | 2022-08-04 10:34 | NUR ---
BEDSIDE SHIFT REPORT RECEIVED FROM RN. PT CURRENTLY RESTING IN BED. AT BEDSIDE. NO S/S OF PAIN OR DISCOMFORT AT THIS TIME. LINES RUNNING ACCORDING TO REPORT (SEE DRIP FLOWSHEET). MARTINEZ DRAINING APPROPRIATELY. VSS. NO ACUTE CHANGES NOTED AT THIS TIME.
--- NOTE | 2022-08-04 14:03 | NUR ---
Anh: Sangeeta Situation: inclusion internship stopped by room on rounds Background: Pt was content with by his side Assessment: Pt's asked for prayer. Er Nurse prayed with pt and . Both appreciated the visit Recommendation: inclusion internship will follow up as needed
--- NOTE | 2022-08-04 20:00 | NUR ---
PT ASSESSMENT COMPLETTED. PT IS ALERT AND ORIENTED TO HIMSELF. PT COULD NOT TELL ME WHERE HE WAS. WHEN ASKED THE YEAR HE RESPONDED WITH "2001" AND SAID THE PRESIDENT WAS HIMSELF. PT IS STILL VERY CONFUSED, BUT IS PLEASANT. PTS LUNGS ARE COARSE AND DIMINISHED IN ALL [place]. PT SHOWS DYSPNEA UPON EXERTION. PTS DRIP IS RUNNING SAID IN REPORT (VIEW DRIP FLOWSHEET). PT STATES THAT HE THERE ARE PEOPLE IN HIS ROOM AND THAT THERE WERE BUGS ON MY SHIRT, THOUGH NEITHER ARE PRESENT AT THIS TIME. PT RECEIVED A BREATHING TREATMENT FROM RT AND WORKLOAD OF BREATHING DECREASED. PT IS NOW LAYING IN BED WITH THE OCCASIONAL OUTBURST, VISIBLE TREMORS, AND IS DIAPHORETIC.
--- NOTE | 2022-08-04 23:27 | NUR ---
PT RECEIVING BED BATH, WAS COOPERATIVE AND FOLLOWING COMMANDS. PT THEN BECAME AGITIATED AND RESTLESS. I TRIED CALMING PT DOWN BY EDUCATING PT ON WHY HE WAS HERE, WHAT HIS MEDICATIONS WERE DOING TO HELP HIM. PT IS STILL VERY CONFUSED SAYING THERE WERE CHICKENS IN THE ROOM AND HE WAS GOING TO KILL PEOPLE. PT BECAME AGGRESSIVE AND ATTEMPTED TO GRAB AT MY ARMS AND BADGE. PT SAID "I AM GOING TO BEAT YOU SOON I GET OUT OF THIS BED, AND ITS GOING TO BE OVER FOR YOU." PT BEGAN TO RIP OFF HIS TELE LEADS AND PULL AT HIS IV. PT GIVEN 2MG OF ATIVAN AND RESTARTED THE PRECEDEX DRIP. MOMENTS AFTER THE MEDICATIONS WERE GIVEN PT PUT HIS HAND TO HIS MOUTH AND RIPPED THE IV OUT OF HIS HAND. RETURNER CALLED AND SUKHWINDER MYERS CAME TO HELP REESCALATE THE SITUATION. PT BEGAN SAYING HE WAS GOING TO KILL THE THREE OF US AND ATTEMPTED TO GRAB AT THE NURSES. SUKHWINDER MCKINNEY WAS ABLE TO GAIN IV ACCESS ON THE FIRST ATTMEPT WHILE SUKHWINDER MYERS AND I HELD DOWN PTS ARMS. PT SINCE HAS SLOWLY STARTED TO RELAX BUT TREMORS ARE MORE VISIBLE AND HEART RATE IS INCREASED.
[2022-08-05] VITALS (704 sets, daily range): BP systolic 154–188; BP diastolic 67–102; PULSE 70–93; TEMP 98.4–99.8; O2SAT 64–100
--- NOTE | 2022-08-05 05:33 | NUR ---
THROUGHOUT SHIFT ATTEMPTS TO TITRATE DOWN THE PRECEDEX HAVE BEEN MADE. PT BECOMES COMBATIVE AND THREATENING WITHIN 20 MINUTES OF THE DECREASE IN MEDICATION. PT BEGINS TO RIP OF TELE MONITOR LEADS AND ATTEMPTS TO PULL AT HIS IV. PT CONTINUES TO REQUEST ME STEP CLOSER TO THE BED SO HE CAN "GRAB ME AND MAKE IT COUNT." THROUGHOUT THE SHIFT PT HAS BECOME MORE VIOLENT TOWARDS THE STAFF,MAKES THREATS, AND ATTEMPTS TO SWING AT THE STAFF THAT IS PRESENT. VERBAL DEESCALATION AND LOW STIMULATION IN THE ROOM HAS BEEN ATTEMPTED. PT DOES NOT RESPOND AND ONLY IRRITATES PT MORE. CURRENTLY PTS BLOOD PRESSURE CUFF AND O2 SENSOR ARE OFF BECAUSE THEY CAUSED INCREASE IN IRRITATION. WILL PASS ON TO DAY SHIFT.
--- NOTE | 2022-08-05 07:46 | NUR ---
BEDSIDE SHIFT REPORT RECEIVED FROM RN. PT CURRENTLY RESTING IN BED. SO S/S OR C/O PAIN OR DISCOMFORT. LINES RUNNING ACCORDING TO REPORT (SEE DRIP FLOWSHEET). MARTINEZ DRAINING APPROPRIATELY. VSS. NO ACUTE CHANGES NOTED AT THIS TIME.
[2022-08-05 11:07] LABS: MEAN CELL VOLUME 103 fl (80.0-100.0); MEAN CORPUSCULAR HGB CONC 33 g/dl (33.0-37.0); MEAN PLATELET VOLUME 9.8 fl (7.4-10.4); PLATELET COUNT 107 K/mm3 (130-400); RED BLOOD COUNT 2.66 M/mm3 (4.20-5.60); REDCELL DISTRIBUTION WIDTH-CV 13.2 % (11.5-14.5)
[2022-08-05 11:08] LABS: HEMATOCRIT 27.3 % (42.0-52.0); MEAN CORPUSCULAR HEMOGLOBIN 34 pg (27-31)
[2022-08-05 11:30] LABS: ALBUMIN 3.1 gm/dL (3.4-4.8); CALCIUM 8.7 mg/dL (8.4-10.2); CREATININE, serum 1.35 mg/dL (0.72-1.25); POTASSIUM 5.3 mmol/L (3.5-4.5); TOTAL PROTEIN 6.3 gm/dL (6.2-8.1)
[2022-08-05 11:39] LABS: BAND 8 % (0-10); LYMPHOCYTE 6 % (20.0-51.0); NEUTROPHILS 82 % (42.0-75.2); PLATELET ESTIMATE DECREASED (NORMAL)
--- NOTE | 2022-08-05 12:35 | NUR ---
Several visits; Patient sleeping, spoke with his who stated that Jamin is feeling better and resting better. She thanked Folding Machine Feeder for keeping him and his family in her prayers and to continue to look in on him.
[2022-08-05 13:46] LABS: ANA SCREEN with REFLEX Negative (Negative)
--- NOTE | 2022-08-05 22:29 | NUR ---
PT HAS BEEN DISORIENTED, HALLUCINATING, AND INAPPRORIATE THIS EVENING. ATIVAN GIVEN PER CIWA SCORE/ORDER, PRECEDEX DRIP HAS BEEN RESTARTED. CONTINUES TO BE RESTLESS IN BED, HOWEVER GETTING SOME SHORT BITS OF CALM. WILL CONTINUE TO MONITOR.
[2022-08-06] VITALS (1161 sets, daily range): BP systolic 147–191; BP diastolic 84–115; PULSE 55–84; TEMP 97.8–98.9; O2SAT 71–100
--- NOTE | 2022-08-06 01:30 | NUR ---
BED ALARM SET OFF, RN TO ROOM, PT CLIMBED OUT OF BED, KNEES ON FLOOR. IV TO CALVIN PULLED OUT. PT SAYING HE WANTS TO LEAVE ROOM. DISORIENTED AND AGITATED. CALLED FOR SECURITY AND NURSES DIRECTOR, ADDITIONALLY TWO STAFF MEMBERS FROM ER ARRIVED TO GET PT BACK INTO BED. GAIT BELT USED AND 6 PERSON LIFT ASSIST. PT BACK TO BED. NEW PIV STARTED IN VERO. PRECEDEX RECONNECTED AND INCREASED DOSE.
--- NOTE | 2022-08-06 02:43 | NUR ---
PT HAS BEEN INCREASINGLY CONFUSED AND AGITATED. ATIVAN WITH LITTLE TO NO EFFECT.
[2022-08-06 06:58] LABS: MEAN CELL VOLUME 107 fl (80.0-100.0); MEAN CORPUSCULAR HGB CONC 32 g/dl (33.0-37.0); PLATELET COUNT 107 K/mm3 (130-400); RED BLOOD COUNT 2.73 M/mm3 (4.20-5.60); REDCELL DISTRIBUTION WIDTH-CV 13.3 % (11.5-14.5)
[2022-08-06 07:02] LABS: HEMATOCRIT 29.1 % (42.0-52.0); HEMOGLOBIN 9.2 g/dl (13.5-18.0); MEAN CORPUSCULAR HEMOGLOBIN 34 pg (27-31)
[2022-08-06 07:15] LABS: CALCIUM 8.8 mg/dL (8.4-10.2); CREATININE, serum 1.5 mg/dL (0.72-1.25); POTASSIUM 5.1 mmol/L (3.5-4.5)
[2022-08-06 08:01] LABS: BAND 4 % (0-10); HYPOCHROMIA 1+; LYMPHOCYTE 6 % (20.0-51.0); NEUTROPHILS 81 % (42.0-75.2); PLATELET ESTIMATE DECREASED (NORMAL)
--- NOTE | 2022-08-06 08:28 | NUR ---
Patient still disoriented, agitated and having hallucinations requiring precedex. Patient attempted to leave overnight,requiring 6 nurses to get him back in bed.
--- NOTE | 2022-08-06 08:45 | NUR ---
Awake and alert resting in bed; requesting clean sheets and bath wipes. Denies any pain or other concerns. No active nose bleed at this time. Call light left within reach; will continue to monitor.
--- NOTE | 2022-08-06 09:54 | NUR ---
Awake and resting in bed; Currently calm and cooperative with staff. Able to tell this nurse where he is currenlty but still some confusion regarding his admission to the hospital and preceding days events. Family at bedside and they are assiting with orientation of patient.
--- NOTE | 2022-08-06 10:07 | NUR ---
Follow-up visit; Patient and family thanked Cd Technician for looking in on Jamin and offering prayer and encouragement to patient and family. Cd Technician will continue to follow up.
--- NOTE | 2022-08-06 13:39 | NUR ---
Requesting to take a nap. Lights turned out and assisted to get in a comfortable position for a nap. Denies any other needs or concerns at this time.
[2022-08-06 14:49] LABS: ANTISMOOTH MUSCLE ANTIBODY Negative (Negative)
--- NOTE | 2022-08-06 17:15 | NUR ---
Noted to have audible wheezing heard without a stethoscope. Patient's o2 96 % on RA. Denies any shortness of breath and appears comfortable. Wheezing heard best over trachea and RT notified of assessment.
[2022-08-07] VITALS (703 sets, daily range): BP systolic 131–226; BP diastolic 69–126; PULSE 70–128; TEMP 98.2–99.2; O2SAT 75–100
[2022-08-07 04:59] LABS: MEAN CELL VOLUME 104 fl (80.0-100.0); MEAN CORPUSCULAR HGB CONC 33 g/dl (33.0-37.0); PLATELET COUNT 106 K/mm3 (130-400); RED BLOOD COUNT 2.58 M/mm3 (4.20-5.60); REDCELL DISTRIBUTION WIDTH-CV 13.6 % (11.5-14.5)
[2022-08-07 05:06] LABS: HEMATOCRIT 26.7 % (42.0-52.0); HEMOGLOBIN 8.9 g/dl (13.5-18.0); MEAN CORPUSCULAR HEMOGLOBIN 34 pg (27-31)
[2022-08-07 05:18] LABS: ALBUMIN 2.7 gm/dL (3.4-4.8); BILIRUBIN,TOTAL 0.7 mg/dL (0.2-1.2); CALCIUM 9.1 mg/dL (8.4-10.2); CREATININE, serum 1.35 mg/dL (0.72-1.25); POTASSIUM 4.1 mmol/L (3.5-4.5); TOTAL PROTEIN 6.1 gm/dL (6.2-8.1)
[2022-08-07 05:19] LABS: LYMPHOCYTE 24 % (20.0-51.0); NEUTROPHILS 67 % (42.0-75.2); NUCLEATED RED BLOOD CELL 1 (0-6)
[2022-08-07 05:46] LABS: BILIRUBIN,DIRECT 0.5 mg/dL (0.0-0.5)
--- NOTE | 2022-08-07 07:14 | NUR ---
RECEIVED BEDSIDE SHIFT REPORT FROM SUKHWINDER GONZALEZ. PATIENT IS IN BED RESTING WITH EYES OPEN. RIGHT UPPER ARM PICC LINE IS STILL IN PLACE, PATENT AND WITH GOOD BLOOD RETURN. MARTINEZ CATHETER STILL IN PLACE, PATENT AND DRAINING TO GRAVITY. REQUESTING TO EAT BREAKFAST. PATIENT IS LUCID AND FULLY ALERT AND ORIENTED. CALL LIGHT WITHIN REACH.
--- NOTE | 2022-08-07 08:30 | NUR ---
DR. LEDBETTER AT BEDSIDE. DISCUSSED PLAN OF CARE. NO ORDERS AT THIS TIME.
--- NOTE | 2022-08-07 10:00 | NUR ---
DR. COWAN AT BEDSIDE. DISCUSSED MOVING PATIENT TO THE MEDICAL FLOOR. AGREEABLE. ORDERS RECEIVED.
--- NOTE | 2022-08-07 11:39 | NUR ---
DR. RASCON AT BEDSIDE. DISCUSSED IVIG MEDICATION AND NEEDING A ONE TIME DOSE. WILL DISCUSS WITH PHARMACY.
--- NOTE | 2022-08-07 11:40 | NUR ---
CALLED PHARMACY AND SPOKE TO TREVIN, PHARMICIST. SAID SHE WOULD PLACE ORDERS AND HAVE IVIG SENT UP.
--- NOTE | 2022-08-07 15:15 | NUR ---
REPORT GIVEN TO SUKHWINDER DEGROOT. WILL BE SENDING PATIENT UP SHORTLY.
--- NOTE | 2022-08-07 15:20 | NUR ---
CALLED DR. COWAN REGARDING NEED FOR CATHETER. AGREEABLE TO TAKING OUT.
--- NOTE | 2022-08-07 17:01 | NUR ---
PATIENT ARRIVED TO THE UNIT AT 1600. DETOXER FROM ICU ON PRECEDEX DRIP CAME TO US FOR MEDICAL CARE. HE IS AXOX3 WITH SIGNS OF FORGETFULNESS. CONFUSION COMES AND GOES, BUT HE KNOWS WHERE HE IS AND RECOGNIZES STAFF. PATIENT IS DIABETIC, ON ACHS. DETOX PROTOCOL SCORE WAS A 2, NO ATIVAN NEEDED. PATIENT IS PLEASANT AND JOKE AROUND. NSR ON THE MONITOR.
--- NOTE | 2022-08-07 21:45 | NUR ---
Patient assessed around 2034. Alert and oriented at this time. Denies having pain and discomfort. PICC to RUE. On room air. Denies SOB and dyspnea at this time. Voices no questions, needs, or concerns at this time. In bed with call light within reach. Bed alarm on.
[2022-08-08] VITALS (13 sets, daily range): BP systolic 47–170; BP diastolic 68–87; PULSE 57–92; TEMP 97.8–98.4
--- NOTE | 2022-08-08 05:55 | NUR ---
Patient states he was able to get some rest during the night. Continues to have pain to BLE. Sitting up on side of bed. Has been pleasant and compliant this shift. Only scoring 1 on detox protocol for elevated BP. Reports burning with urination has stopped, and has been able to void well throughout the night. Voices no questions, needs, or concerns at this time. In bed with call light within reach.
--- NOTE | 2022-08-08 08:00 | NUR ---
Patient sitting on the edge of bed, just finished eating breakfast. A&Ox4. VSS. IV CDI. Reports pain in BLE/feet. Nurse instructed the patient to elevate legs to help with pain. Patient verbalized an understanding. Patient independent with repositioning in bed. No further needs expressed. Call light within reach
--- NOTE | 2022-08-08 17:52 | NUR ---
Patient had an uneventful day, spent most of the day in bed. Had family visit throughout the day. A&Ox4. VSS. IV CDI. Reports pain in BLE, nurse instructed patient to elevate legs and gave scheduled medication. No further needs expressed. Call light within reach
--- NOTE | 2022-08-08 20:48 | NUR ---
Tx givem via mask, tolerated well. Pt on room air before and after tx.
[2022-08-09] VITALS (7 sets, daily range): BP systolic 142–179; BP diastolic 65–87; PULSE 61–71; TEMP 97.7–98.4
--- NOTE | 2022-08-09 05:15 | NUR ---
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 PT SITTING ON THE SIDE OF THE BED WATCHING TV. PT COMPLAINED OF FOOT PAIN. HOSPITALIST CALLED. ROXICODONE ORDER AND GIVEN. PT FELT MEDICATION WAS EFFECTIVE FOR HIS PAIN. PT DENIED CHEST PAIN, PALPITATIONS, SOB, N,V,D OR DIZZINESS. PT EXPRESSED NO ADDITIONAL NEEDS AT THIS TIME. CALL LIGHT WITHIN REACH.
[2022-08-09] MEDS ORDERED: NORVASC 10MG10 MG PO (07:19)
[2022-08-09] MEDS ORDERED: PREDNISONE20 MG PO (07:19)
[2022-08-09] MEDS ORDERED: FOLIC ACID 11 MG/TA1 PO (07:20)
[2022-08-09] MEDS ORDERED: NATURE'S BLEND100 M2 PO (07:20)
--- NOTE | 2022-08-09 08:00 | NUR ---
Patient sitting on the edge of bed, A&Ox4. VSS. IV CDI. Reports pain BLE, no pain medication given. No further needs expressed. Call light within reach
[2022-08-09] MEDS ORDERED: ROXICODONE 55 MG/TAB PO (08:36)
--- NOTE | 2022-08-09 12:28 | NUR ---
Liner Worker attended clinical rounds with the team and patient is alert and oriented, sitting up in bed. Patient will be discharged home today. SW met with patient to review discharge plan and he stated he is ready to go home today. Patient not interested in Home Health services at this time and feels like once he gets home he will continue to improve. Discharge Plan: Home
--- NOTE | 2022-08-09 13:35 | NUR ---
Discharge paperwork reviewed with the patient and . Patient verbalized an understanding to follow doctors orders. IV removed from MAYTE, SUKHWINDER Gregory. Site CDI. No further needs expressed. Call light within reach
--- NOTE | 2022-08-09 13:50 | NUR ---
Patient transfered by wheelchair to awaiting vehicle. No further needs expressed
== END 2022-08-09 13:50 | disposition home or self-care (01) | DRG 193 ==
LOC: COL.ER 02:40 → ICU 06:08 → MEDICAL 06:08 → ICU 08-03 23:54 → MEDICAL 08-07 15:47
PROVIDERS: Emergency Medicine; Internal Medicine; Internal Medicine Gastroenterology; Nurse Practitioner Family; Physician Assistant; Student in an Organized Health Care Education/Training Program; ADMIT Internal Medicine
PROC: 02HV33Z Insertion of Infusion Device into Superior Vena Cava, Percutaneous Approach (ICD-10-PCS; principal; 2022-08-06)
DX: J18.9 Pneumonia, unspecified organism (principal); J96.01 Acute respiratory failure with hypoxia; E87.1 Hypo-osmolality and hyponatremia; N17.9 Acute kidney failure, unspecified; E87.20 Acidosis, unspecified; G61.81 Chronic inflammatory demyelinating polyneuritis; R44.0 Auditory hallucinations; F10.139 Alcohol abuse with withdrawal, unspecified; Z68.42 Body mass index [BMI] 45.0-49.9, adult; E11.40 Type 2 diabetes mellitus with diabetic neuropathy, unspecified; G62.1 Alcoholic polyneuropathy; E66.01 Morbid (severe) obesity due to excess calories; Z20.822 Contact with and (suspected) exposure to COVID-19; K76.0 Fatty (change of) liver, not elsewhere classified; E87.5 Hyperkalemia; D69.6 Thrombocytopenia, unspecified; D64.9 Anemia, unspecified; E78.5 Hyperlipidemia, unspecified; K21.9 Gastro-esophageal reflux disease without esophagitis; R44.1 Visual hallucinations; I12.9 Hypertensive chronic kidney disease with stage 1 through stage 4 chronic kidney disease, or unspecified chronic kidney disease; E11.22 Type 2 diabetes mellitus with diabetic chronic kidney disease; N18.9 Chronic kidney disease, unspecified; G89.29 Other chronic pain; M79.673 Pain in unspecified foot; Z85.038 Personal history of other malignant neoplasm of large intestine; Z88.8 Allergy status to other drugs, medicaments and biological substances; Z79.4 Long term (current) use of insulin; Z79.82 Long term (current) use of aspirin; Z23 Encounter for immunization
CPT/HCPCS: OP; A4314; C1751; G0378; J0360; J0456; J0696; J1200; J1569; J1650; J1815; J1940; J2060; J2270; J2930; J3010; J7050; J7120; J7512; Q9967